=== PATIENT | female | born 1985 | race Caucasian/White ===

== ENCOUNTER 2016-07-27 20:28 | Emergency (ER) | payer OTHER ==
[2016-07-27 20:40] VITALS: BP 114/71; PULSE 80; RESP 20; TEMP 98.5
[2016-07-27] MEDS ORDERED: PENICILLIN VK 500MG STARTER 4 TAB BTL PO STA (21:11)
--- NOTE | 2016-07-27 21:14 | ED ---
ENT HPI - General Chief complaint: Dental/Oral Stated complaint: Oral Infection Time Seen by Provider: 07/27/16 20:54 Source: patient, RN notes reviewed Mode of arrival: ambulatory Limitations: no limitations - History of Present Illness Initial comments: 30-year-old female presented to the ER complaining of left lower jaw pain. She states that she had all of her lower teeth pulled earlier this week and is experiencing increased pain on the left. She states that the right is healing nicely. She states that she pushed on the area earlier today and noticed some pus come out of the suture line. She denies any constitutional symptoms including fever, chills, nausea, vomiting, abdominal pain, diarrhea. She states that she does not have a follow-up scheduled with the oral surgeon at this time. She states that during the surgical procedure they did need to remove some of the bone from the left-hand side as well. She is taking Motrin twice daily and she does have a prescription for [place] pain medication however she does not like how this makes her feel does not take it off to. She states that she is in minimal pain more discomfort with palpation of the area but was concerned that there were some drainage and increased swelling on that side. - Related Data Previous Rx's Medication Instructions Recorded Penicillin V Potassium [Pen Vee K] 500 mg PO TID #30 tab 07/27/16 Allergies Allergy/AdvReac Type Severity Reaction Status Date / Time No Known Allergies Allergy Verified 07/27/16 20:37 Review of Systems ROS Statement: Those systems with pertinent positive or pertinent negative responses have been documented in the HPI. ROS Other: All systems not noted in ROS Statement are negative. Past Medical History Past Medical History: Syncope, Thyroid Disorder Additional Past Medical History / Comment(s): PVC's History of Any Multi-Drug Resistant Organisms: None Reported Past Surgical History: Section Past Psychological History: No Psychological Hx Reported Smoking Status: Current every day smoker Past Alcohol Use History: Rare Past Drug Use History: Marijuana General Exam Limitations: no limitations General appearance: alert, other (Patient appears to be mildly anxious and in minimal discomfort.) Head exam: Present: atraumatic, other (There is visible swelling on the left mandible.) Eye exam: Present: normal appearance, PERRL, EOMI Pupils: Present: normal accommodation ENT exam: Present: mucous membranes moist, other (Patient has upper dentures in place. There are sutures along the lower gumline secondary to surgical removal of the lower teeth. There is a peak appear to be some fibrinous granulation tissue. There is localized area of edema along the left jaw line.) Neck exam: Present: normal inspection, other (No lymphadenopathy.) Respiratory exam: Present: normal lung sounds bilaterally Cardiovascular Exam: Present: regular rate, normal rhythm Neurological exam: Present: alert, oriented X3, CN II-XII intact, normal gait Psychiatric exam: Present: normal affect, normal mood Course Vital Signs 07/27/16 20:37 Temperature 98.5 F Pulse Rate 80 Respiratory 20 Rate Blood Pressure 114/71 O2 Sat by Pulse 98 Oximetry Medical Decision Making - Medical Decision Making 30-year-old female presents to the ER after a surgical removal of the lower teeth. She states that there was some pus that came out of the area today. On exam I do note a localized area of edema and tenderness along the left mandible. This is greater than the right. We will recommend treatment with antibiotic penicillin being the antibiotic of choice. Patient is continue her Motrin at home and take [place] she has as needed for pain. Recommend follow-up with the oral surgeon this week. I'm did give her the option of staying home from work tomorrow. Patient's return to the ER with any worsening symptoms or concerns. Disposition Clinical Impression: Oral infection Disposition: HOME SELF-CARE Condition: Good Instructions: Toothache (ED) Additional Instructions: To return to the ER with any worsening symptoms or concerns. To follow-up with oral surgeon as soon as possible. Prescriptions: Penicillin V Potassium [Pen Vee K] 500 mg PO TID #30 tab Referrals: Roni Hua III, MD [Primary Care Provider] - 1-2 days Time of Disposition: 21:14
== END 2016-07-27 21:20 | disposition home or self-care (01) ==
LOC: EC 20:28
DX: T81.4XXA Infection following a procedure, initial encounter (principal); F17.200 Nicotine dependence, unspecified, uncomplicated; Z98.818 Other dental procedure status
CPT/HCPCS: 99282

== ENCOUNTER 2017-04-11 03:32 | Emergency (ER) | payer BC, OTHER ==
[2017-04-11] MEDS ORDERED: ONDANSETRON 4 MG/2 ML VIAL IVP STA (03:49)
[2017-04-11] MEDS ORDERED: KETOROLAC 30 MG/ML 1 ML VIAL IVP STA (03:49)
[2017-04-11] MEDS ORDERED: SODIUM CHLORIDE 0.9% 500 ML IV STA (03:49)
[2017-04-11] MEDS ORDERED: DIPHENOX-ATROP 2.5-0.025 MG 1 EACH TAB PO STA (03:49)
[2017-04-11] MEDS ORDERED: SODIUM CHLORIDE 0.9% 1,000 ML IV STA (03:49)
--- NOTE | 2017-04-11 03:51 | ED ---
General Adult HPI - General Chief complaint: Nausea/Vomiting/Diarrhea Stated complaint: Flu like symptoms Time Seen by Provider: 04/11/17 03:35 Source: patient, RN notes reviewed Mode of arrival: ambulatory Limitations: no limitations - History of Present Illness Initial comments: This is a 31-year-old female presents emergency Department complaining of nausea vomiting and diarrhea for 8 hours. Patient states she's unable to keep anything down. Patient denies any fever or chills. Patient states her lower back hurts a little. Patient denies any abdominal pain but states she does have abdominal cramping. Patient denies any chest pain difficult breathing or shortness of breath. Patient denies headache patient denies numbness or weakness. Patient denies any dysuria hematuria or urinary frequency. - Related Data Home Medications Medication Instructions Recorded Confirmed LORazepam [Ativan] 0.5 mg PO BID PRN 04/11/17 04/11/17 Allergies Allergy/AdvReac Type Severity Reaction Status Date / Time No Known Allergies Allergy Verified 04/11/17 03:42 Review of Systems ROS Statement: Those systems with pertinent positive or pertinent negative responses have been documented in the HPI. ROS Other: All systems not noted in ROS Statement are negative. Past Medical History Past Medical History: Syncope, Thyroid Disorder Additional Past Medical History / Comment(s): PVC's History of Any Multi-Drug Resistant Organisms: None Reported Past Surgical History: Section Past Psychological History: No Psychological Hx Reported Smoking Status: Current every day smoker Past Alcohol Use History: Rare Past Drug Use History: Marijuana General Exam - General Exam Comments Initial Comments: GENERAL: Patient is well-developed and well-nourished. Patient is nontoxic and well- hydrated and is in mild distress. ENT: Neck is soft and supple. No significant lymphadenopathy is noted. Oropharynx is clear. Dry membranes. Neck has full range of motion without eliciting any pain. EYES: The sclera were anicteric and conjunctiva were pink and moist. Extraocular movements were intact and pupils were equal round and reactive to light. Eyelids were unremarkable. PULMONARY: Unlabored respirations. Good breath sounds bilaterally. No audible rales rhonchi or wheezing was noted. CARDIOVASCULAR: There is a regular rate and rhythm without any murmurs gallops or rubs. ABDOMEN: Soft and nontender with normal bowel sounds. No palpable organomegaly was noted. There is no palpable pulsatile mass. SKIN: Skin is clear with no lesions or rashes and otherwise unremarkable. NEUROLOGIC: Patient is alert and oriented x3. Cranial nerves II through XII are grossly intact. Motor and sensory are also intact. Normal speech, volume and content. Symmetrical smile. MUSCULOSKELETAL: Normal extremities with adequate strength and full range of motion. No lower extremity swelling or edema. No calf tenderness. LYMPHATICS: No significant lymphadenopathy is noted PSYCHIATRIC: Normal psychiatric evaluation. Normal interpersonal interactions appears functionally intact in deals appropriately with others. No signs of depression. No signs of anxiety. Limitations: no limitations Course Vital Signs 04/11/17 03:36 Temperature 97.2 F L Pulse Rate 118 H Respiratory 20 Rate Blood Pressure 122/72 O2 Sat by Pulse 98 Oximetry Medical Decision Making - Medical Decision Making I went back to check on the patient and she was feeling considerably better. She was no longer nauseated but still had some abdominal cramping. Patient was checked out again after about 40 minutes and again she was feeling much better wanted to go home. - Lab Data Result diagrams: 04/11/17 03:18 04/11/17 03:18 Lab Results 04/11/17 04/11/17 04/11/17 Range/Units 03:18 03:18 04:00 WBC 16.9 H (3.8-10.6) k/uL RBC 5.11 (3.80-5.40) m/uL Hgb 15.0 (11.4-16.0) gm/dL Hct 44.0 (34.0-46.0) % MCV 86.2 (80.0-100.0) fL MCH 29.5 (25.0-35.0) pg MCHC 34.2 (31.0-37.0) g/dL RDW 13.0 (11.5-15.5) % Plt Count 274 (150-450) k/uL Neutrophils % 90 % Lymphocytes % 3 % Monocytes % 4 % Eosinophils % 2 % Basophils % 0 % Neutrophils # 15.2 H (1.3-7.7) k/uL Lymphocytes # 0.5 L (1.0-4.8) k/uL Monocytes # 0.7 (0-1.0) k/uL Eosinophils # 0.3 (0-0.7) k/uL Basophils # 0.1 (0-0.2) k/uL Sodium 141 (137-145) mmol/L Potassium 4.4 (3.5-5.1) mmol/L Chloride 108 H (98-107) mmol/L Carbon Dioxide 19 L (22-30) mmol/L Anion Gap 14 mmol/L BUN 12 (7-17) mg/dL Creatinine 0.80 (0.52-1.04) mg/dL Est GFR (MDRD) Af Amer >60 (>60 ml/min/1.73 sqM) Est GFR (MDRD) Non-Af >60 (>60 ml/min/1.73 sqM) Glucose 111 H (74-99) mg/dL Calcium 10.3 H (8.4-10.2) mg/dL Total Bilirubin 1.0 (0.2-1.3) mg/dL AST 22 (14-36) U/L ALT 30 (9-52) U/L Alkaline Phosphatase 71 (38-126) U/L Total Protein 8.0 (6.3-8.2) g/dL Albumin 4.8 (3.5-5.0) g/dL Amylase 42 (30-110) U/L Lipase 57 (23-300) U/L Urine Color Urine Appearance (Clear) Urine pH (5.0-8.0) Ur Specific [place] (1.001-1.035) Urine Protein (Negative) Urine Glucose (UA) (Negative) Urine Ketones (Negative) Urine Blood (Negative) Urine Nitrite (Negative) Urine Bilirubin (Negative) Urine Urobilinogen (<2.0) mg/dL Ur Leukocyte Esterase (Negative) Urine RBC (0-5) /hpf Urine WBC (0-5) /hpf Ur Squamous Epith Cells (0-4) /hpf Urine Bacteria (None) /hpf Urine Mucus (None) /hpf Urine HCG, Qual Not Detected (Not Detectd) 04/11/17 Range/Units 04:00 WBC (3.8-10.6) k/uL RBC (3.80-5.40) m/uL Hgb (11.4-16.0) gm/dL Hct (34.0-46.0) % MCV (80.0-100.0) fL MCH (25.0-35.0) pg MCHC (31.0-37.0) g/dL RDW (11.5-15.5) % Plt Count (150-450) k/uL Neutrophils % % Lymphocytes % % Monocytes % % Eosinophils % % Basophils % % Neutrophils # (1.3-7.7) k/uL Lymphocytes # (1.0-4.8) k/uL Monocytes # (0-1.0) k/uL Eosinophils # (0-0.7) k/uL Basophils # (0-0.2) k/uL Sodium (137-145) mmol/L Potassium (3.5-5.1) mmol/L Chloride (98-107) mmol/L Carbon Dioxide (22-30) mmol/L Anion Gap mmol/L BUN (7-17) mg/dL Creatinine (0.52-1.04) mg/dL Est GFR (MDRD) Af Amer (>60 ml/min/1.73 sqM) Est GFR (MDRD) Non-Af (>60 ml/min/1.73 sqM) Glucose (74-99) mg/dL Calcium (8.4-10.2) mg/dL Total Bilirubin (0.2-1.3) mg/dL AST (14-36) U/L ALT (9-52) U/L Alkaline Phosphatase (38-126) U/L Total Protein (6.3-8.2) g/dL Albumin (3.5-5.0) g/dL Amylase (30-110) U/L Lipase (23-300) U/L Urine Color Dark Yellow Urine Appearance Clear (Clear) Urine pH 8.5 H (5.0-8.0) Ur Specific [place] 1.028 (1.001-1.035) Urine Protein 1+ H (Negative) Urine Glucose (UA) Negative (Negative) Urine Ketones Trace H (Negative) Urine Blood Negative (Negative) Urine Nitrite Negative (Negative) Urine Bilirubin 1+ H (Negative) Urine Urobilinogen 8.0 (<2.0) mg/dL Ur Leukocyte Esterase Trace H (Negative) Urine RBC 7 H (0-5) /hpf Urine WBC 3 (0-5) /hpf Ur Squamous Epith Cells 3 (0-4) /hpf Urine Bacteria Rare H (None) /hpf Urine Mucus Many H (None) /hpf Urine HCG, Qual (Not Detectd) Disposition Clinical Impression: Gastroenteritis Disposition: HOME SELF-CARE Instructions: Gastroenteritis (ED) Referrals: Roni Hua III, MD [Primary Care Provider] - 1-2 days Time of Disposition: 05:18
[2017-04-11 04:14] LABS: Appearance,Urine Clear (Clear); Bacteria,Urine Rare /hpf; Bilirubin,Urine 1+ (Negative); Blood,Urine Negative (Negative); Color,Urine Dark Yellow; Glucose,Urine (UA) Negative (Negative); Ketones,Urine Trace (Negative); Leukocyte Esterase,Urine Trace (Negative); Mucus,Urine Many /hpf; Nitrite,Urine Negative (Negative); PH, Urine 8.5 (5.0-8.0); Protein,Urine 1+ (Negative); RBC,Urine 7 /hpf (0-5); Specific Gravity,Urine 1.028 (1.001-1.035); Squamous Epithelial Cell,Urine 3 /hpf (0-4); WBC,Urine 3 /hpf (0-5)
[2017-04-11 04:16] LABS: ALT 30 U/L (9-52); AST 22 U/L (14-36); Albumin 4.8 g/dL (3.5-5.0); Alkaline Phosphatase 71 U/L (38-126); Amylase 42 U/L (30-110); Anion Gap 14 mmol/L; Blood Urea Nitrogen 12 mg/dL (7-17); Calcium 10.3 mg/dL (8.4-10.2); Carbon Dioxide 19 mmol/L (22-30); Chloride 108 mmol/L (98-107); Glucose 111 mg/dL (74-99); Lipase 57 U/L (23-300); Potassium 4.4 mmol/L (3.5-5.1); Sodium 141 mmol/L (137-145)
[2017-04-11 04:18] LABS: Basophils # (A) 0.1 k/uL (0-0.2); Basophils % (A) 0 %; Eosinophils # (A) 0.3 k/uL (0-0.7); Eosinophils % (A) 2 %; Lymphocytes # (A) 0.5 k/uL (1.0-4.8); Lymphocytes % (A) 3 %; MCH 29.5 pg (25.0-35.0); MCHC 34.2 g/dL (31.0-37.0); MCV 86.2 fL (80.0-100.0); Mean Platelet Volume 7.6; Monocytes # (A) 0.7 k/uL (0-1.0); Monocytes % (A) 4 %; Neutrophils # (A) 15.2 k/uL (1.3-7.7); Neutrophils % (A) 90 %; Platelet Count 274 k/uL (150-450); RBC 5.11 m/uL (3.80-5.40); WBC 16.9 k/uL (3.8-10.6)
[2017-04-11] MEDS ORDERED: ONDANSETRON 4 MG ODT STARTER PACK 2 TAB BTL PO STA (05:19)
[2017-04-11 05:39] VITALS: BP 101/59; PULSE 79; RESP 18; TEMP 97.6
== END 2017-04-11 05:40 | disposition home or self-care (01) ==
LOC: EC 03:32
DX: K52.9 Noninfective gastroenteritis and colitis, unspecified (principal); F17.200 Nicotine dependence, unspecified, uncomplicated
CPT/HCPCS: 36415; 80053; 82150; 83690; 85025; 81001; 81025; 99284; 96374; 96375; 96361 ×2; J2405; J1885; S0119

== ENCOUNTER → 2017-06-29 | Outpatient (CLI) | payer BC, OTHER ==
--- NOTE | 2017-06-29 09:18 | US ---
EXAMINATION TYPE: US thyroid st tissue head/neck DATE OF EXAM: 06/29/2017 COMPARISON: 07/13/2014 CLINICAL HISTORY: E04.1 Non toxic single thyroid nodule. Follow up thyroid nodule GLAND SIZE: Right Lobe: 4.1 x 1.2 x 1.3 cm Overall Parenchyma: homogenous Left Lobe: 4.2 x 0.9 x 1.2 cm Overall Parenchyma: homogeneous Isthmus Thickness: 0.2 cm NODULES RIGHT: # of nodules measured on right: 1 1. 0.6 X 0.4 x 0.5 cm isoechoic mixed nodule at the mid pole with well-defined margins. This nodule is wider than tall and shows no intranodular vascularity. Prior size: 0.6 x 0.4 x 0.3 cm LEFT: # of nodules measured on left: 0 ISTHMUS: # of nodules measured in the isthmus: 0 Bilateral neck scanned, no evidence of lymphadenopathy. IMPRESSION: Stable single subcentimeter right-sided thyroid nodule
== END | disposition home or self-care (01) ==
LOC: RADUSMAIN 08:31
PROVIDERS: ATTEND Family Medicine
DX: E04.1 Nontoxic single thyroid nodule (principal); Z88.8 Allergy status to other drugs, medicaments and biological substances
CPT/HCPCS: 76536

== ENCOUNTER 2018-08-31 00:15 | Inpatient (IN) | payer BC, OTHER ==
[2018-08-31] MEDS ORDERED: TERBUTALINE 1 MG/ML VIAL SQ PRN (01:15)
[2018-08-31] MEDS ORDERED: METHYLERGONOVINE 0.2 MG/ML 1 ML AMP IM PRN (01:15)
[2018-08-31] MEDS ORDERED: LIDOCAINE 0.5% (PF) 5 MG/ML (50 ML SDV) SQ PRN (01:15)
[2018-08-31] MEDS ORDERED: CARBOPROST TROMETHAMINE 250 MCG/ML 1 ML AMP IM PRN (01:15)
[2018-08-31] MEDS ORDERED: OXYTOCIN 10 UNIT/ML 1 ML VIAL IM PRN (01:15)
[2018-08-31] MEDS ORDERED: AMPICILLIN 2,000 MG in SODIUM CHLORIDE 0.9% 100 ML IVPB STA (01:15)
[2018-08-31 01:41] LABS: Basophils % (A) 0 %; Eosinophils # (A) 0.2 k/uL (0-0.7); Eosinophils % (A) 2 %; HCT 35.1 % (34.0-46.0); HGB 11.7 gm/dL (11.4-16.0); Lymphocytes % (A) 16 %; MCH 28.7 pg (25.0-35.0); MCHC 33.5 g/dL (31.0-37.0); MCV 85.8 fL (80.0-100.0); Mean Platelet Volume 8.8; Monocytes # (A) 0.8 k/uL (0-1.0); Monocytes % (A) 7 %; Neutrophils # (A) 9.5 k/uL (1.3-7.7); Neutrophils % (A) 73 %; Platelet Count 255 k/uL (150-450); RBC 4.09 m/uL (3.80-5.40); RDW 14.6 % (11.5-15.5); WBC 12.9 k/uL (3.8-10.6)
[2018-08-31] MEDS: LACTATED RINGERS 1,000 ML IV SCH ×2 (01:42→05:24)
[2018-08-31] MEDS: OXYTOCIN 30 UNITS/500 ML NS 30 UNIT in SALINE 1 500ML.BAG IV SCH (02:15)
--- NOTE | 2018-08-31 02:33 | P.HPOB ---
History of Present Illness H&P Date: 08/31/18 Chief Complaint: SROM 33-year-old presents at 39 weeks with spontaneous rupture of membranes at 2330. Her cervix is 2 cm down, 60% effaced, and -3 station. She is jocelyn irregularly. heart tones 130s with moderate variability and accelerations, category 1 tracing. Review of Systems All systems: negative Constitutional: Denies chills, Denies fever Eyes: denies blurred vision, denies pain Ears, nose, mouth and throat: Denies headache, Denies sore throat Cardiovascular: Denies chest pain, Denies shortness of breath Respiratory: Denies cough Gastrointestinal: Denies abdominal pain, Denies diarrhea, Denies nausea, Denies vomiting Genitourinary: Denies dysuria, Denies hematuria Musculoskeletal: Denies myalgias Integumentary: Denies pruritus, Denies rash Neurological: Denies numbness, Denies weakness Psychiatric: Denies anxiety, Denies depression Endocrine: Denies fatigue, Denies weight change Past Medical History Past Medical History: Syncope, Thyroid Disorder Additional Past Medical History / Comment(s): PVC's. Obstetrics history: First was a section for arrest to descend macrosomia. This is her second and she's had care with Dr. Lopez since the first trimester. Blood type is O+, antibodies negative, rubella immune, hepatitis B negative, HIV nonreactive, GBS positive. History of Any Multi-Drug Resistant Organisms: None Reported Past Surgical History: Section Past Psychological History: No Psychological Hx Reported Smoking Status: Current every day smoker Past Alcohol Use History: Rare Past Drug Use History: Marijuana Medications and Allergies Home Medications Medication Instructions Recorded Confirmed Type LORazepam [Ativan] 0.5 mg PO BID PRN 04/11/17 04/11/17 History Allergies Allergy/AdvReac Type Severity Reaction Status Date / Time No Known Allergies Allergy Verified 04/11/17 03:42 Exam Osteopathic Statement: *. No significant issues noted on an osteopathic structural exam other than those noted in the History and Physical/Consult. Intake and Output 08/30/18 08/30/18 08/31/18 14:59 22:59 06:59 Other: Weight 65.771 kg Heart: Regular rate and rhythm Lungs: Clear to auscultation bilaterally Abdomen: Soft, nontender Extremities: Negative Homans sign Results Result Diagrams: 08/31/18 01:25 Abnormal Lab Results - Last 24 Hours (Table) 08/31/18 Range/Units 01:25 WBC 12.9 H (3.8-10.6) k/uL Neutrophils # 9.5 H (1.3-7.7) k/uL Assessment and Plan (1) Spontaneous rupture of membranes Current Visit: Yes Status: Acute Code(s): VJS1182 - SNOMED Code(s): 528795831 (2) Previous section Current Visit: Yes Status: Acute Code(s): Z98.891 - HISTORY OF UTERINE SCAR FROM PREVIOUS SURGERY SNOMED Code(s): 212629486 Plan: 1. Admit to family place 2. Monitor closely 3. Pitocin augmentation if necessary 4. Ampicillin for GBS prophylaxis 5. Anticipate normal vaginal delivery
[2018-08-31] MEDS ORDERED: BUTORPHANOL 1 MG/ML 1 ML VIAL IV PRN (03:10)
[2018-08-31] MEDS ORDERED: ROPIVACAINE 5MG/ML 20ML VIAL ONE (05:05)
[2018-08-31] MEDS ORDERED: fentaNYL (PF) 50 MCG/ML 5 ML AMP ONE (05:05)
[2018-08-31] MEDS ORDERED: SODIUM CHLORIDE 0.9% 100 ML BAG ONE (05:05)
[2018-08-31] MEDS: AMPICILLIN 1,000 MG in SODIUM CHLORIDE 0.9% 50 ML IVPB SCH ×2 (05:51→09:54)
[2018-08-31] MEDS ORDERED: ROPIVACAINE 100 MG, fentaNYL (PF) 200 MCG in SODIUM CHLORIDE 0.9% 76 ML EPIDURAL ONE (06:34)
[2018-08-31 06:44] VITALS: BMI 26.5
[2018-08-31] MEDS ORDERED: WITCH HAZEL 1 EACH MED..PAD TOPICAL PRN (14:37)
[2018-08-31] MEDS ORDERED: ZOLPIDEM 5 MG TAB PO PRN (14:37)
[2018-08-31] MEDS ORDERED: diphenhydrAMINE 50 MG/ML 1 ML VIAL IVP PRN ×2 (14:37)
[2018-08-31] MEDS ORDERED: ACETAMINOPHEN TAB 325 MG TAB PO PRN (14:37)
[2018-08-31] MEDS ORDERED: SIMETHICONE 80 MG CHEWABLE PO PRN (14:37)
[2018-08-31] MEDS ORDERED: HYDROCORTISONE 2.5% RECTAL CREAM 30 GM TUBE RECTAL PRN (14:37)
[2018-08-31] MEDS ORDERED: LANOLIN CREAM 5 GM TUBE TOPICAL PRN (14:37)
[2018-08-31] MEDS ORDERED: diphenhydrAMINE 25 MG CAP PO PRN (14:37)
[2018-08-31] MEDS ORDERED: diphenhydrAMINE 50 MG CAP PO PRN (14:37)
[2018-08-31] MEDS ORDERED: BENZOCAINE/MENTHOL SPRAY 1 GM/SPRAY AEROSOL TOPICAL PRN (14:37)
[2018-08-31] MEDS ORDERED: OXYTOCIN 20 UNITS/1000 ML NS 1,000 ML IV SCH (14:45)
[2018-08-31] MEDS: IBUPROFEN 600 MG TAB PO PRN ×2 (14:47→19:44)
[2018-08-31 15:20] VITALS: RESP 16
--- NOTE | 2018-08-31 17:38 | P.PROBDLV ---
Vaginal Delivery Note - . Vaginal Delivery Note: The patient progressed to complete dilation after oxytocin augmentation of labor. She did receive epidural anesthesia. She had internal monitoring the entire progress of labor. Once reaching complete dilation, she began pushing. Infant's head came to a crown. With one further push, the 's head delivered across the perineum followed by the anterior shoulder. Nose and mouth were bulb suctioned. With one further push, the remainder the infant easily delivered and was placed on mother's abdomen. Cord was clamped and cut and was taken to warmer for evaluation. A viable female was noted with scores of 8 at 1 minute and 9 at 5 minutes and infant weight of 6 pounds 15.6 ounces. Placenta delivered shortly thereafter, intact, with a two- vessel cord. Uterus contracted well after oxytocin was given and uterine massage was carried out. Inspection of the perineum revealed a left periurethral laceration and a small first-degree perineal laceration. These areas were anesthetized with 1% lidocaine. The left periurethral laceration was sutured with 3-0 Vicryl suture in a running locked fashion. The first-degree perineal laceration was sutured with 2-0 Vicryl suture in a running locked fashion. Estimated blood loss is approximately 200 mL's. Both mother and infant are in stable condition.
[2018-09-01] MEDS: SENNOSIDES-DOCUSATE SODIUM 1 EACH TAB PO SCH ×2 (01:58→07:50)
[2018-09-01] MEDS: IBUPROFEN 600 MG TAB PO PRN (06:22)
[2018-09-01 08:36] LABS: Basophils % (A) 0 %; Eosinophils # (A) 0.2 k/uL (0-0.7); Eosinophils % (A) 1 %; HCT 29.2 % (34.0-46.0); Lymphocytes # (A) 1.5 k/uL (1.0-4.8); Lymphocytes % (A) 8 %; MCH 29.2 pg (25.0-35.0); MCHC 33.2 g/dL (31.0-37.0); MCV 87.7 fL (80.0-100.0); Mean Platelet Volume 9.3; Monocytes % (A) 5 %; Neutrophils # (A) 16.4 k/uL (1.3-7.7); Neutrophils % (A) 85 %; Platelet Count 200 k/uL (150-450); RBC 3.33 m/uL (3.80-5.40); RDW 14.8 % (11.5-15.5); WBC 19.4 k/uL (3.8-10.6)
[2018-09-01 08:38] LABS: HGB 9.7 gm/dL (11.4-16.0)
--- NOTE | 2018-09-01 08:48 | P.DS ---
Providers Date of admission: 08/31/18 00:45 Expected date of discharge: 09/01/18 Attending physician: Shivam Lopez Primary care physician: Shivam Lopez [facility] Course: This is a 33-year-old female 2 para 1 at 39 weeks who presented with spontaneous rupture of membranes. She underwent oxytocin augmentation of labor and delivered a vaginal after section of a viable female with scores of 8 at 1 minute and 9 at 5 minutes and infant weight is 6 pounds 15.6 ounces. Marginal cord insertion and two-vessel cord were also noted. Her course has been uncomplicated. Lochia is been decreasing. Pain is fairly well controlled with ibuprofen. She is breast- feeding. Vital signs are stable. Abdomen is soft with fundus firm and nontender. Extremities show negative Homans. Impression is status post vaginal after day #1. Plan is to discharge home today. Routine instructions are given. She is advised to follow up in the office with Dr. Lopez in 6 weeks. She is advised to call the office if she has any further questions or concerns prior to her appointment time. She will be given a prescription for ibuprofen and a breast pump prior to discharge. Procedures: Oxytocin augmentation of labor Vaginal after section on 08/31/2018 Patient Condition at Discharge: Stable Plan - Discharge Summary New Discharge Prescriptions: New Ibuprofen [Motrin] 600 mg PO Q6HR PRN #60 tab PRN Reason: Mild Pain Or Fever >= 100.5 No Action LORazepam [Ativan] 0.5 mg PO BID PRN PRN Reason: Anxiety Discharge Medication List LORazepam [Ativan] 0.5 mg PO BID PRN 04/11/17 [History] Ibuprofen [Motrin] 600 mg PO Q6HR PRN #60 tab 09/01/18 [Rx] Follow up Appointment(s)/Referral(s): Shivam Lopez DO [Primary Care Provider] - 6 Weeks Activity/Diet/Wound Care/Special Instructions: Instructions 1. Do not begin any exercise program for 3 weeks. 2. Do not resume sexual relations for 3 weeks or longer if uncomfortable. 3. You may take tub baths or showers at any time. 4. You may use tampons if desired after 3 weeks. 5. Keep the area of episiotomy (stitches) clean and dry. 6. If you are not nursing, wear a good fitting, supportive bra during the day and limit fluid intake for at least 1 week to prevent breast engorgement. 7. Call the office, [phone], within the next week to make appointment for your 6 week checkup if it has not already been made. 8. Report any of the following occurrences to the doctor promptly: a. Heavy, excessive bleeding b. Chills, fever c. Burning or frequency of urination d. Pain or redness and breasts if nursing e. Increasing pain or swelling in episiotomy (stitches). In addition to the above instructions, the following additional should be followed: 1. No heavy lifting or straining (exercising) until after 6 week checkup. 2. Keep abdominal incision clean and dry: You may wear a dressing if more comfortable. 3. Make office appointment for 10 days after going home or as instructed by her doctor. Discharge Disposition: HOME SELF-CARE
[2018-09-01 09:04] VITALS: BP 112/69; PULSE 62; TEMP 97.8
[2018-09-01] MEDS: OXYTOCIN 30 UNITS/500 ML NS 30 UNIT in SALINE 1 500ML.BAG IV SCH (09:06)
[2018-09-01] MEDS: AMPICILLIN 1,000 MG in SODIUM CHLORIDE 0.9% 50 ML IVPB SCH (10:07)
== END 2018-09-01 15:20 | disposition home or self-care (01) | DRG 807 ==
LOC: FBPOP 00:15 → 4FBP 00:45
PROVIDERS: ADMIT Obstetrics & Gynecology; ATTEND Obstetrics & Gynecology
PROC: 10E0XZZ Delivery of Products of Conception, External Approach (ICD-10-PCS; principal; 2018-08-31)
PROC: 0HQ9XZZ Repair Perineum Skin, External Approach (ICD-10-PCS; 2018-08-31)
PROC: 0UQMXZZ Repair Vulva, External Approach (ICD-10-PCS; 2018-08-31)
PROC: 4A1H74Z Monitoring of Products of Conception, Cardiac Electrical Activity, Via Natural or Artificial Opening (ICD-10-PCS; 2018-08-31)
PROC: 4A1H7HZ Monitoring of Products of Conception, Cardiac Sound, Via Natural or Artificial Opening (ICD-10-PCS; 2018-08-31)
PROC: 4A1H7FZ Monitoring of Products of Conception, Cardiac Rhythm, Via Natural or Artificial Opening (ICD-10-PCS; 2018-08-31)
PROC: 4A1H7CZ Monitoring of Products of Conception, Cardiac Rate, Via Natural or Artificial Opening (ICD-10-PCS; 2018-08-31)
PROC: 10H073Z Insertion of Monitoring Electrode into Products of Conception, Via Natural or Artificial Opening (ICD-10-PCS; 2018-08-31)
PROC: 00HU33Z Insertion of Infusion Device into Spinal Canal, Percutaneous Approach (ICD-10-PCS; 2018-08-31)
PROC: 3E0R3BZ Introduction of Anesthetic Agent into Spinal Canal, Percutaneous Approach (ICD-10-PCS; 2018-08-31)
DX: O34.211 Maternal care for low transverse scar from previous cesarean delivery (principal); Z37.0 Single live birth; N85.8 Other specified noninflammatory disorders of uterus; O43.193 Other malformation of placenta, third trimester; O70.0 First degree perineal laceration during delivery; O71.82 Other specified trauma to perineum and vulva; O99.824 Streptococcus B carrier state complicating childbirth; O99.284 Endocrine, nutritional and metabolic diseases complicating childbirth; E07.9 Disorder of thyroid, unspecified; Z3A.39 39 weeks gestation of pregnancy; O99.334 Smoking (tobacco) complicating childbirth; F17.200 Nicotine dependence, unspecified, uncomplicated; Z79.899 Other long term (current) drug therapy
CPT/HCPCS: 59025; 84112; 85025; 86850; 86900; 86901; 88307; 99213

== ENCOUNTER → 2019-03-08 | Outpatient (CLI) | payer OTHER ==
--- NOTE | 2019-03-08 15:19 | US ---
EXAMINATION TYPE: US thyroid st tissue head/neck DATE OF EXAM: 03/08/2019 COMPARISON: US 06/29/2017 CLINICAL HISTORY: E04.1 nontoxic single thyroid nodule. F/U nodule GLAND SIZE: Right Lobe: 4.1 x 1.3 x 1.5 cm Overall Parenchyma: homogenous Left Lobe: 3.8 x 1.1 x 1.1 cm Overall Parenchyma: homogeneous Isthmus Thickness: 0.2 cm NODULES RIGHT: # of nodules measured on left: 1 1. 0.4 X 0.3 x 0.4 cm isoechoic mixed nodule at the mid pole with poorly defined margins; This nod ule is wider than tall and shows intranodular vascularity. Prior size: 0.6 x 0.4 x 0.5 cm Bilateral neck scanned, no evidence of lymphadenopathy. Similar nodule right lobe of thyroid. IMPRESSION: No interval growth of the subcentimeter solid solitary right thyroid nodule.
== END | disposition home or self-care (01) ==
LOC: RADUSWWP 14:44
PROVIDERS: ATTEND Family Medicine
DX: E04.1 Nontoxic single thyroid nodule (principal)
CPT/HCPCS: 76536

== ENCOUNTER → 2020-12-07 | Outpatient (CLI) | payer OTHER ==
[2020-12-07 13:11] LABS: HCG,Qualitative Serum Detected
[2020-12-07 20:09] LABS: Basophils # (A) 0.09 X 10*3/uL (0.00-0.10); Basophils % (A) 0.8 %; Eosinophils # (A) 0.39 X 10*3/uL (0.04-0.35); Eosinophils % (A) 3.6 %; HGB 13.8 g/dL (12.0-15.0); Lymphocytes # (A) 2.27 X 10*3/uL (0.90-5.00); Lymphocytes % (A) 20.7 %; MCH 30.8 pg (27.0-32.0); MCHC 33.7 g/dL (32.0-37.0); MCV 91.5 fL (80.0-97.0); Monocytes # (A) 0.93 X 10*3/uL (0.20-1.00); Monocytes % (A) 8.5 %; Neutrophils # (A) 7.25 X 10*3/uL (1.80-7.70); Neutrophils % (A) 65.9 %; Platelet Count 350 X 10*3/uL (140-440); RBC 4.48 X 10*6/uL (4.10-5.20); RDW 12.5 % (11.5-14.5); WBC 10.98 X 10*3/uL (4.50-10.00)
[2020-12-08 01:53] LABS: ALT 20 U/L (8-44); AST 20 U/L (13-35); Albumin/Globulin Ratio 2.18 (1.60-3.17); Alkaline Phosphatase 78 U/L (41-126); Calcium 9.5 mg/dL (8.7-10.3); Carbon Dioxide 25.9 mmol/L (21.6-31.8); Chloride 106 mmol/L (96-109); Chol/HDL Ratio 4.44; Cholesterol 200 mg/dL (0-200); Globulin 2.2 g/dL (1.6-3.3); Glucose 80 mg/dL (70-110); LDL Cholesterol,Calculated 104.8 mg/dL (0.0-131.0); Potassium 4.4 mmol/L (3.5-5.5); Sodium 138 mmol/L (135-145); Total Bilirubin 0.6 mg/dL (0.3-1.2)
[2020-12-08 21:24] LABS: Gliadin AB IgA, Deaminated NEGATIVE (NEGATIVE); Gliadin AB IgA, Unit 1.5 U/mL; Gliadin AB IgG, Deaminated NEGATIVE (NEGATIVE)
== END | disposition home or self-care (01) ==
LOC: LABWHC1 11:23
PROVIDERS: ATTEND Family Medicine
DX: Z00.01 Encounter for general adult medical examination with abnormal findings (principal)
CPT/HCPCS: 36415; 80053; 80061; 83516; 84439; 84443; 84703; 85025

== ENCOUNTER 2020-12-11 17:28 | Emergency (ER) | payer OTHER ==
[2020-12-11 18:18] VITALS: BP 108/74; PULSE 107; RESP 18; TEMP 98.2
[2020-12-11] MEDS ORDERED: METOCLOPRAMIDE 5 MG/ML 2 ML VIAL IVP STA (19:01)
[2020-12-11] MEDS ORDERED: SODIUM CHLORIDE 0.9% 1,000 ML IV STA (19:01)
[2020-12-11] MEDS ORDERED: SODIUM CHLORIDE 0.9% 500 ML 500 ML IV STA (19:01)
[2020-12-11 19:25] LABS: Basophils # (A) 0.1 k/uL (0-0.2); Basophils % (A) 1 %; Eosinophils # (A) 0.4 k/uL (0-0.7); Eosinophils % (A) 4 %; HCT 39.4 % (34.0-46.0); HGB 13.9 gm/dL (11.4-16.0); Lymphocytes # (A) 2.2 k/uL (1.0-4.8); Lymphocytes % (A) 17 %; MCH 31.4 pg (25.0-35.0); MCHC 35.3 g/dL (31.0-37.0); MCV 88.8 fL (80.0-100.0); Mean Platelet Volume 7.8; Monocytes # (A) 0.6 k/uL (0-1.0); Monocytes % (A) 5 %; Neutrophils # (A) 9.1 k/uL (1.3-7.7); Neutrophils % (A) 72 %; Platelet Count 340 k/uL (150-450); RBC 4.44 m/uL (3.80-5.40); RDW 12.5 % (11.5-15.5); WBC 12.7 k/uL (3.8-10.6)
--- NOTE | 2020-12-11 19:25 | ED ---
Abdominal Pain HPI - General Chief Complaint: Abdominal Pain Stated Complaint: abd pain Time Seen by Provider: 12/11/20 18:38 Source: patient, RN notes reviewed Mode of arrival: ambulatory Limitations: no limitations - History of Present Illness Initial Comments: This a 35-year-old female presents emergency Department chief complaint abdominal pain, upper and lower. She states she was involved she is . Patient states she went to her PCP that she wasn't feeling well and found out she was . Patient states that she has no vaginal bleeding or vaginal discharge but states that she's been quite nausea, vomiting, fatigue. She does have chronic diarrhea and they aren't sure why she has this this has been ongoing for over 2 years. She's does state when she tries states symptoms worsen. - Related Data Home Medications Medication Instructions Recorded Confirmed Venlafaxine HCl ER [Effexor Xr] 75 mg PO DAILY 12/11/20 12/11/20 Allergies Allergy/AdvReac Type Severity Reaction Status Date / Time No Known Allergies Allergy Verified 12/11/20 20:10 Review of Systems ROS Statement: Those systems with pertinent positive or pertinent negative responses have been documented in the HPI. ROS Other: All systems not noted in ROS Statement are negative. Past Medical History Past Medical History: Syncope, Thyroid Disorder Additional Past Medical History / Comment(s): PVC's. Obstetrics history: First was a section for arrest to descend macrosomia. This is her second and she's had care with Dr. Lopez since the first trimester. Blood type is O+, antibodies negative, rubella immune, hepatitis B negative, HIV nonreactive, GBS positive. History of Any Multi-Drug Resistant Organisms: None Reported Past Surgical History: Section Past Anesthesia/Blood Transfusion Reactions: No Reported Reaction Past Psychological History: No Psychological Hx Reported Smoking Status: Current every day smoker Past Alcohol Use History: Rare Past Drug Use History: Marijuana - Past Family History Father Family Medical History: Hypertension General Exam Limitations: no limitations General appearance: alert, in no apparent distress Head exam: Present: atraumatic, normocephalic, normal inspection Eye exam: Present: normal appearance, PERRL, EOMI. Absent: scleral icterus, conjunctival injection, periorbital swelling ENT exam: Present: normal exam, normal oropharynx, mucous membranes moist Neck exam: Present: normal inspection, full ROM. Absent: tenderness, meningismus, lymphadenopathy Respiratory exam: Present: normal lung sounds bilaterally. Absent: respiratory distress, wheezes, rales, rhonchi, stridor Cardiovascular Exam: Present: regular rate, normal rhythm, normal heart sounds. Absent: systolic murmur, diastolic murmur, rubs, gallop, clicks GI/Abdominal exam: Present: soft, tenderness (Suprapubic and right upper quadrant), normal bowel sounds. Absent: distended, guarding, rebound, rigid Back exam: Absent: CVA tenderness (R), CVA tenderness (L) Neurological exam: Present: alert Skin exam: Present: warm, dry, intact, normal color. Absent: rash Course Vital Signs 12/11/20 18:14 Temperature 98.2 F Pulse Rate 107 H Respiratory 18 Rate Blood Pressure 108/74 O2 Sat by Pulse 99 Oximetry Medical Decision Making - Medical Decision Making Patient stated that she had a leave prior results. Initial results they do have are unremarkable. She is controlled discharged return parameters were discussed. - Lab Data Result diagrams: 12/11/20 19:08 12/11/20 19:08 Lab Results 12/11/20 12/11/20 12/11/20 Range/Units 19:08 19:08 19:08 WBC 12.7 H (3.8-10.6) k/uL RBC 4.44 (3.80-5.40) m/uL Hgb 13.9 (11.4-16.0) gm/dL Hct 39.4 (34.0-46.0) % MCV 88.8 (80.0-100.0) fL MCH 31.4 (25.0-35.0) pg MCHC 35.3 (31.0-37.0) g/dL RDW 12.5 (11.5-15.5) % Plt Count 340 (150-450) k/uL MPV 7.8 Neutrophils % 72 % Lymphocytes % 17 % Monocytes % 5 % Eosinophils % 4 % Basophils % 1 % Neutrophils # 9.1 H (1.3-7.7) k/uL Lymphocytes # 2.2 (1.0-4.8) k/uL Monocytes # 0.6 (0-1.0) k/uL Eosinophils # 0.4 (0-0.7) k/uL Basophils # 0.1 (0-0.2) k/uL Sodium 135 L (137-145) mmol/L Potassium 4.1 (3.5-5.1) mmol/L Chloride 105 (98-107) mmol/L Carbon Dioxide 24 (22-30) mmol/L Anion Gap 6 mmol/L BUN 5 L (7-17) mg/dL Creatinine 0.53 (0.52-1.04) mg/dL Est GFR (CKD-EPI)AfAm >90 (>60 ml/min/1.73 sqM) Est GFR (CKD-EPI)NonAf >90 (>60 ml/min/1.73 sqM) Glucose 95 (74-99) mg/dL Plasma Lactic Acid Oscar (0.7-2.0) mmol/L Calcium 9.5 (8.4-10.2) mg/dL Total Bilirubin 0.4 (0.2-1.3) mg/dL AST 21 (14-36) U/L ALT 16 (4-34) U/L Alkaline Phosphatase 72 (38-126) U/L Total Protein 6.7 (6.3-8.2) g/dL Albumin 4.1 (3.5-5.0) g/dL Amylase 42 (30-110) U/L Lipase 58 (23-300) U/L Urine Color Light Yellow Urine Appearance Clear (Clear) Urine pH 6.0 (5.0-8.0) Ur Specific [place] 1.004 (1.001-1.035) Urine Protein Negative (Negative) Urine Glucose (UA) Negative (Negative) Urine Ketones Negative (Negative) Urine Blood Negative (Negative) Urine Nitrite Negative (Negative) Urine Bilirubin Negative (Negative) Urine Urobilinogen <2.0 (<2.0) mg/dL Ur Leukocyte Esterase Negative (Negative) 12/11/20 Range/Units 19:08 WBC (3.8-10.6) k/uL RBC (3.80-5.40) m/uL Hgb (11.4-16.0) gm/dL Hct (34.0-46.0) % MCV (80.0-100.0) fL MCH (25.0-35.0) pg MCHC (31.0-37.0) g/dL RDW (11.5-15.5) % Plt Count (150-450) k/uL MPV Neutrophils % % Lymphocytes % % Monocytes % % Eosinophils % % Basophils % % Neutrophils # (1.3-7.7) k/uL Lymphocytes # (1.0-4.8) k/uL Monocytes # (0-1.0) k/uL Eosinophils # (0-0.7) k/uL Basophils # (0-0.2) k/uL Sodium (137-145) mmol/L Potassium (3.5-5.1) mmol/L Chloride (98-107) mmol/L Carbon Dioxide (22-30) mmol/L Anion Gap mmol/L BUN (7-17) mg/dL Creatinine (0.52-1.04) mg/dL Est GFR (CKD-EPI)AfAm (>60 ml/min/1.73 sqM) Est GFR (CKD-EPI)NonAf (>60 ml/min/1.73 sqM) Glucose (74-99) mg/dL Plasma Lactic Acid Oscar 0.8 (0.7-2.0) mmol/L Calcium (8.4-10.2) mg/dL Total Bilirubin (0.2-1.3) mg/dL AST (14-36) U/L ALT (4-34) U/L Alkaline Phosphatase (38-126) U/L Total Protein (6.3-8.2) g/dL Albumin (3.5-5.0) g/dL Amylase (30-110) U/L Lipase (23-300) U/L Urine Color Urine Appearance (Clear) Urine pH (5.0-8.0) Ur Specific [place] (1.001-1.035) Urine Protein (Negative) Urine Glucose (UA) (Negative) Urine Ketones (Negative) Urine Blood (Negative) Urine Nitrite (Negative) Urine Bilirubin (Negative) Urine Urobilinogen (<2.0) mg/dL Ur Leukocyte Esterase (Negative) Disposition Clinical Impression: Abdominal pain, Disposition: HOME SELF-CARE Condition: Stable Instructions (If sedation given, give patient instructions): Abdominal Pain in (ED) Additional Instructions: Please return to the Emergency Department if symptoms worsen or any other concerns. Is patient prescribed a controlled substance at d/c from ED?: No Referrals: Roni Hua III, MD [Primary Care Provider] - 1-2 days Time of Disposition: 20:45
[2020-12-11 19:28] LABS: Appearance,Urine Clear (Clear); Bilirubin,Urine Negative (Negative); Blood,Urine Negative (Negative); Color,Urine Light Yellow; Glucose,Urine (UA) Negative (Negative); Ketones,Urine Negative (Negative); Leukocyte Esterase,Urine Negative (Negative); Nitrite,Urine Negative (Negative); Protein,Urine Negative (Negative); Specific Gravity,Urine 1.004 (1.001-1.035); Urobilinogen,Urine <2.0 mg/dL (<2.0)
[2020-12-11 19:34] LABS: ALT 16 U/L (4-34); AST 21 U/L (14-36); African American GFR (CKD) >90 (>60 ml/min/1.73 sqM); Albumin 4.1 g/dL (3.5-5.0); Alkaline Phosphatase 72 U/L (38-126); Amylase 42 U/L (30-110); Anion Gap 6 mmol/L; Blood Urea Nitrogen 5 mg/dL (7-17); Calcium 9.5 mg/dL (8.4-10.2); Carbon Dioxide 24 mmol/L (22-30); Chloride 105 mmol/L (98-107); Glucose 95 mg/dL (74-99); Lipase 58 U/L (23-300); Non-African American GFR(CKD) >90 (>60 ml/min/1.73 sqM); Potassium 4.1 mmol/L (3.5-5.1); Sodium 135 mmol/L (137-145); Total Bilirubin 0.4 mg/dL (0.2-1.3); Total Protein 6.7 g/dL (6.3-8.2)
--- NOTE | 2020-12-11 20:42 | US ---
EXAMINATION TYPE: US gallbladder DATE OF EXAM: 12/11/2020 COMPARISON: EXAMINATION TYPE: US gallbladder DATE OF EXAM: 12/11/2020 COMPARISON: US & CT CLINICAL HISTORY: pain. Pt states epigastric pain EXAM MEASUREMENTS: Liver Length: 16.5 cm Gallbladder Wall: 0.2 cm CBD: 0.5 cm Right Kidney: 10.4 x 4.1 x 4.3 cm Pancreas: wnl Liver: wnl Gallbladder: Lumen clear, slightly contracted however pt states she is not NPO Evidence for sonographic Crouch's sign: No CBD: wnl Right Kidney: wnl IMPRESSION: No sonographic evidence for acute abnormality or cholelithiasis.
--- NOTE | 2020-12-11 20:48 | US ---
EXAMINATION TYPE: Transabdominal DATE OF EXAM: 12/11/2020 7:39 PM COMPARISON: NONE CLINICAL HISTORY: pain. Nausea and pain EXAM PERFORMED: Transabdominal (TA) EXAM MEASUREMENTS: GESTATIONAL AGE / DATING Physician Established: Not yet established Dates by LMP: (7 weeks/0 days) EDC: 07/30/2021 Dates by First Scan: No previous this is first scan Dates by Current Scan for: (6 weeks/1 days) EDC: 08/05/2021 MATERNAL ANATOMY Uterus: 10.1 x 4.1 x 6.0 cm Right Ovary: 2.5 x 1.7 x 1.6 cm Left Ovary: 2.8 x 2.9 x 2.0 cm Post CDS / Adnexa: wnl Presence of free fluid: No Presence of corpus luteal cyst: Left OVary= 1.7 x 1.5 x 2.1 cm Presence of subchorionic bleed: No GESTATION / SURVEY CRL: 0.4 cm (6 weeks/1 days) MSD: wnl Yolk Sac (normal less than 6mm): 3mm Heart Rate: 116 bpm Rhythm: Normal IUP: Viable IUP Beta HcG (if available): Not available at this time IMPRESSION: Single live intrauterine with estimated gestational age of 6 weeks and 1 day. No significant acute abnormality seen.
== END 2020-12-11 20:47 | disposition home or self-care (01) ==
LOC: EC 17:28
DX: O26.891 Other specified pregnancy related conditions, first trimester (principal); O21.9 Vomiting of pregnancy, unspecified; O99.891 Other specified diseases and conditions complicating pregnancy; O99.331 Smoking (tobacco) complicating pregnancy, first trimester; R10.30 Lower abdominal pain, unspecified; R10.10 Upper abdominal pain, unspecified; R19.7 Diarrhea, unspecified; F17.200 Nicotine dependence, unspecified, uncomplicated; Z67.40 Type O blood, Rh positive; Z3A.01 Less than 8 weeks gestation of pregnancy
CPT/HCPCS: 36415; 76705; 76801; 80053; 81003; 82150; 83605; 83690; 84702; 85025; 96361; 96374; 99284

== ENCOUNTER 2021-07-17 03:29 | Inpatient (IN) | payer OTHER ==
[2021-07-17] MEDS ORDERED: METHYLERGONOVINE 0.2 MG/ML 1 ML AMP IM PRN (03:45)
[2021-07-17] MEDS ORDERED: TERBUTALINE 1 MG/ML VIAL SQ PRN (03:45)
[2021-07-17] MEDS ORDERED: LIDOCAINE 1% (PF) 10 MG/ML (30 ML SDV) SQ PRN (03:45)
[2021-07-17] MEDS ORDERED: CARBOPROST TROMETHAMINE 250 MCG/ML 1 ML AMP IM PRN (03:45)
[2021-07-17] MEDS ORDERED: OXYTOCIN 10 UNIT/ML 1 ML VIAL IM PRN (03:45)
[2021-07-17 04:09] LABS: Basophils # (A) 0.1 k/uL (0-0.2); Basophils % (A) 1 %; Eosinophils # (A) 0.2 k/uL (0-0.7); Eosinophils % (A) 2 %; HCT 38.9 % (34.0-46.0); HGB 12.5 gm/dL (11.4-16.0); Lymphocytes # (A) 3.5 k/uL (1.0-4.8); Lymphocytes % (A) 23 %; MCH 28.7 pg (25.0-35.0); MCHC 32.2 g/dL (31.0-37.0); MCV 89.2 fL (80.0-100.0); Mean Platelet Volume 11.9; Monocytes # (A) 1.1 k/uL (0-1.0); Monocytes % (A) 7 %; Neutrophils # (A) 10.2 k/uL (1.3-7.7); Neutrophils % (A) 67 %; Platelet Count 227 k/uL (150-450); RBC 4.36 m/uL (3.80-5.40); RDW 14.4 % (11.5-15.5); WBC 15.4 k/uL (3.8-10.6)
[2021-07-17] MEDS ORDERED: AMPICILLIN 2,000 MG in SODIUM CHLORIDE 0.9% 100 ML IVPB STA (04:36)
--- NOTE | 2021-07-17 04:36 | P.HPOB ---
History of Present Illness H&P Date: 07/17/21 Chief Complaint: Contractions and leaking fluid This patient is a 35-year-old 3 para 2 female estimated date of confinement 08/06/2021 estimated gestational age 37 and one sevenths weeks who presents to labor and delivery with complaints of gush of fluid at 3 AM and contractions thereafter. Patient's care is per Dr. Garcia and Dr. Mcclain. Obstetrical history is such that she had a for her first baby and to her second baby. Patient has been counseled by Dr. Garcia during this she is requested a repeat . is been complicated by tobacco use. Otherwise appears uncomplicated. Rupture membranes was spontaneous appears to be meconium-stained fluid Review of Systems Genitourinary: Reports Menstruation: Reports amenorrhea Past Medical History Past Medical History: Syncope, Thyroid Disorder Additional Past Medical History / Comment(s): PVC's. Obstetrics history: First was a section for arrest to descend macrosomia. This is her second and she's had care with Dr. Lopez since the first trimester. Blood type is O+, antibodies negative, rubella immune, hepatitis B negative, HIV nonreactive, GBS positive. History of Any Multi-Drug Resistant Organisms: None Reported Past Surgical History: Section Past Anesthesia/Blood Transfusion Reactions: No Reported Reaction Past Psychological History: Anxiety, Depression Smoking Status: Never smoker - Past Family History Father Family Medical History: Hypertension Medications and Allergies Home Medications Medication Instructions Recorded Confirmed Type Venlafaxine HCl ER [Effexor Xr] 75 mg PO DAILY 12/11/20 07/17/21 History Pnv,Calcium 72/Iron/Folic Acid 1 each PO DAILY 07/17/21 07/17/21 History [ Plus Tablet] Allergies Allergy/AdvReac Type Severity Reaction Status Date / Time No Known Allergies Allergy Verified 07/17/21 03:41 Exam Vital Signs Temp Pulse Resp BP 07/17/21 03:40 96.3 F L 89 20 119/64 Intake and Output 07/16/21 07/16/21 07/17/21 14:59 22:59 06:59 Other: Weight 65.771 kg - OBG Physical Exam Abdomen: bowel sounds normal, no diffuse tenderness, no bruit present, no guarding noted, no hepatomegaly, no splenomegaly, no mass Vulva: both: normal Vagina: normal moisture, no discharge Cervix: no lesion (Cervix is 8 cm dilated completely effaced 0 station), no discharge Uterus: enlarged Results blood work shows she has a positive blood type. Glucola was abnormal with a normal three-hour gtt. Group B strep was negative however she had a positive group B strep with her second . Result Diagrams: 07/17/21 03:50 Abnormal Lab Results - Last 24 Hours (Table) 07/17/21 Range/Units 03:50 WBC 15.4 H (3.8-10.6) k/uL Assessment and Plan Assessment: This is a 35-year-old 3 para 2 female 37 and one sevenths weeks gestation admitted to labor and delivery with spontaneous rupture membranes for meconium-stained fluid, active labor, previous section with previous successful who desires repeat . Patient also had a positive group B strep with her second . Plan is antibiotic prophylaxis and anticipate vaginal after section. Patient's quite out of control at this time however I did discuss with her and her the meconium and her current clinical situation. She does desire to at this time. (1) 37 weeks gestation of Current Visit: Yes Status: Acute Code(s): Z3A.37 - 37 WEEKS GESTATION OF SNOMED Code(s): 22012372 (2) Normal labor Current Visit: Yes Status: Acute Code(s): O80 - ENCOUNTER FOR FULL-TERM UNCOMPLICATED DELIVERY; Z37.9 - OUTCOME OF DELIVERY, UNSPECIFIED SNOMED Code(s): 43571045 (3) Meconium in amniotic fluid Current Visit: Yes Status: Acute Code(s): P96.83 - MECONIUM STAINING SNOMED Code(s): 332586334 (4) History of group B Streptococcus (GBS) infection Current Visit: Yes Status: Acute Code(s): Z86.19 - PERSONAL HISTORY OF OTHER INFECTIOUS AND PARASITIC DISEASES SNOMED Code(s): 461195796 (5) Previous section Current Visit: No Status: Acute Code(s): Z98.891 - HISTORY OF UTERINE SCAR FROM PREVIOUS SURGERY SNOMED Code(s): 802883536 (6) Spontaneous rupture of membranes Current Visit: No Status: Acute Code(s): OOI8017 - SNOMED Code(s): 979259422
[2021-07-17] MEDS: LACTATED RINGERS 1,000 ML IV SCH ×2 (04:40→05:00)
[2021-07-17 04:43] LABS: Anisocytosis (M) Present; Large Platelets Present
--- NOTE | 2021-07-17 05:40 | P.PROBDLV ---
Vaginal Delivery Note - . Vaginal Delivery Note: Normal spontaneous vaginal delivery and delivery () viable female Apgars 8 and 9 delivery time is Please see dictated H&P for intimate details of this patient's admission. In brief summary is a pleasant 35-year-old 3 para 2 female 37 and one sevenths weeks gestation admitted to labor and delivery spontaneous rupture membranes for meconium-stained fluid at 3 AM this morning. Patient's had a previous section with her first baby and to her second baby has requested this . Patient's quite uncomfortable and a bit out of control therefore scalpel electrode was placed. She is 8 cm dilated. Patient spontaneously progresses quickly to complete this time pushes approximately 3 or 4 times pushes the head to the perineum. Posterior perineum is supported and we have controlled delivery of the infant's head over the intact perineum. Infant's head was straight occiput anterior presentation. Is no evidence of nuchal cord. Bulb suction was done of the mouth and nares. Anesthesia is present for delivery. With gentle downward traction we then have deliver the anterior and posterior shoulder and rest this 's body. This is a vigorous viable female Apgars are 8 and 9 delivery time is blank hours. After delivery of the the has spontaneous cry therefore is laid right on the mother's abdomen. After the cord was done pulsing is doubly clamped and cut. The placenta is then spontaneously delivered intact. It is meconium- stained. Note the had a multi loop area of cord around bilateral feet. Inspection of the perineum shows a superficial periurethral laceration. No r epairs required. S viable loss about 1 50 mL. There are no complications. Infant and mother are stable delivery room.
[2021-07-17] MEDS ORDERED: LANOLIN CREAM 5 GM TUBE TOPICAL PRN (06:07)
[2021-07-17] MEDS ORDERED: ZOLPIDEM 5 MG TAB PO PRN (06:07)
[2021-07-17] MEDS ORDERED: SIMETHICONE 80 MG CHEWABLE PO PRN (06:07)
[2021-07-17] MEDS ORDERED: diphenhydrAMINE 50 MG/ML 1 ML VIAL IVP PRN (06:07)
[2021-07-17] MEDS ORDERED: BENZOCAINE/MENTHOL SPRAY 1 GM/SPRAY AEROSOL TOPICAL PRN (06:07)
[2021-07-17] MEDS ORDERED: diphenhydrAMINE 25 MG CAP PO PRN (06:07)
[2021-07-17] MEDS ORDERED: bisacodyL 10 MG SUPP RECTAL PRN (06:07)
[2021-07-17] MEDS ORDERED: HYDROCORTISONE 2.5% RECTAL CREAM 30 GM TUBE RECTAL PRN (06:07)
[2021-07-17] MEDS ORDERED: OXYTOCIN 30 UNITS/500 ML NS 30 UNIT in SALINE 1 500ML.BAG IV SCH (06:15)
[2021-07-17] MEDS: ACETAMINOPHEN TAB 325 MG TAB PO PRN ×2 (06:30→15:00)
--- NOTE | 2021-07-17 08:13 | P.MSEPDOC ---
Presenting Problems - Arrival Data Date of Arrival on Unit: 07/17/21 Time of Arrival on Unit: 02:55 Mode of Transport: Wheelchair - Complaint OB-Reason for Admission/Chief Complaint: Possible Onset of Labor, Rule Out SROM Comment: SROM mec fluid at 0300 Medical History - Information : 3 Para: 2 Term: 2 : 0 Abortions: Spontaneous or Elective: 0 Number of Living Children: 2 - Gestational Age Gestational Age by HENRY (wks/days): 37 Weeks and 1 Days - History Complications: Prior Review of Systems - Review of Systems Constitutional: No problems Breast: No problems ENT: No problems Cardiovascular: No problems Respiratory: No problems Gastrointestinal: No problems Genitourinary: No problems Musculoskeletal: No problems Neurological: No problems Skin: No problems Vital Signs - Temperature Temperature: 97.7 F Temperature Source: Temporal Artery Scan - Pulse Right Supine Brachial Pulse Rate: 73 Pulse Assessment Method: Automatic Cuff - Respirations Respiratory Rate: 17 Oxygen Delivery Method: Room Air O2 Sat by Pulse Oximetry: 99 - Blood Pressure Right Arm Supine Blood Pressure: 123/78 Blood Pressure Mean: 93 Blood Pressure Source: Automatic Cuff Medical Screen Scoring - Cervical Exam Dilation (cm): 6 Effacement (%): 80 Station: -1 Membranes: Ruptured - Uterine Contractions Frequency From (mins): 2 Frequency To (mins): 3 Duration From (seconds): 60 Duration To (seconds): 90 Intensity: Strong Resting: Soft to palpation - Assessment - Baby A Baseline FHR: 140 Heart Rate - NICHD Category: Category I (Normal) NST: Reactive Physician Notification - Physician Notified Physician Notified Date: 07/17/21 Physician Notified Time: 03:42 Physician: Willem Harmon New Order Received: Yes - Notification Comment Comment: Admit for labor, enroute Maternal Triage Index - Maternal Triage Index Presenting for scheduled procedure w/no complaint: No - Stat/Priority 1 Stat Priority 1: No - Urgent/Priority 2 Urgent Priority 2: No - Prompt/Priority 3 Prompt Priority 3: Yes Criteria Met for Priority 3: SROM >34 weeks Disposition - Disposition OB Disposition: Admit I agree with the RN Medical Screening Exam: Yes Case reviewed; plan agreed upon as documented in EMR&OBIX.: Yes Diagnosis: ENCOUNTER FOR FULL-TERM UNCOMPLICATED DELIVERY
[2021-07-17] MEDS: IBUPROFEN 600 MG TAB PO PRN ×2 (08:46→18:26)
[2021-07-17] MEDS: SENNOSIDES-DOCUSATE SODIUM 1 EACH TAB PO SCH ×2 (08:46→20:00)
[2021-07-18 00:10] VITALS: TEMP 98.3
--- NOTE | 2021-07-18 06:37 | P.DS ---
Providers Date of admission: 07/17/21 03:45 Expected date of discharge: 07/18/21 Attending physician: Rosa M Garcia Primary care physician: Rosa M Garcia - Discharge Diagnosis(es) (1) Normal vaginal delivery Current Visit: Yes Status: Acute Hospital Course: Patient presented and active labor. She underwent a normal vaginal delivery. course was uncomplicated. She denies nausea, vomiting, chest pain, shortness of breath or any calf pain. Patient will be discharged home day #1 in stable condition to follow-up with me in 6 weeks. Plan - Discharge Summary New Discharge Prescriptions: New Ibuprofen [Motrin] 600 mg PO Q6HR PRN #30 tab PRN Reason: Mild Pain (Scale 1 To 3) No Action Venlafaxine HCl ER [Effexor Xr] 75 mg PO DAILY Pnv,Calcium 72/Iron/Folic Acid [ Plus Tablet] 1 each PO DAILY Discharge Medication List Venlafaxine HCl ER [Effexor Xr] 75 mg PO DAILY 12/11/20 [History] Pnv,Calcium 72/Iron/Folic Acid [ Plus Tablet] 1 each PO DAILY 07/17/21 [History] Ibuprofen [Motrin] 600 mg PO Q6HR PRN #30 tab 07/18/21 [Rx] Follow up Appointment(s)/Referral(s): Rosa M Garcia DO [Primary Care Provider] - 09/05/21 11:15 am Discharge Disposition: HOME SELF-CARE
[2021-07-18 07:11] LABS: Basophils # (A) 0.1 k/uL (0-0.2); Basophils % (A) 1 %; Eosinophils # (A) 0.2 k/uL (0-0.7); Eosinophils % (A) 2 %; HCT 35.2 % (34.0-46.0); HGB 11.3 gm/dL (11.4-16.0); Lymphocytes # (A) 2.6 k/uL (1.0-4.8); Lymphocytes % (A) 25 %; MCH 29.4 pg (25.0-35.0); MCHC 32.1 g/dL (31.0-37.0); MCV 91.6 fL (80.0-100.0); Mean Platelet Volume 11.7; Monocytes # (A) 0.6 k/uL (0-1.0); Monocytes % (A) 6 %; Neutrophils # (A) 6.9 k/uL (1.3-7.7); Neutrophils % (A) 65 %; Platelet Count 218 k/uL (150-450); RBC 3.85 m/uL (3.80-5.40); RDW 14.4 % (11.5-15.5); WBC 10.6 k/uL (3.8-10.6)
[2021-07-18 07:47] VITALS: BP 113/72; PULSE 70; RESP 20
[2021-07-18] MEDS: SENNOSIDES-DOCUSATE SODIUM 1 EACH TAB PO SCH (08:37)
== END 2021-07-18 09:00 | disposition home or self-care (01) | DRG 807 ==
LOC: FBPOP 03:29 → 4FBP 03:45
PROVIDERS: ADMIT Obstetrics & Gynecology; ATTEND Obstetrics & Gynecology
PROC: 10E0XZZ Delivery of Products of Conception, External Approach (ICD-10-PCS; principal; 2021-07-17)
PROC: 10H073Z Insertion of Monitoring Electrode into Products of Conception, Via Natural or Artificial Opening (ICD-10-PCS; principal; 2021-07-17)
DX: O34.219 Maternal care for unspecified type scar from previous cesarean delivery (principal); Z37.0 Single live birth; O62.3 Precipitate labor; O42.92 Full-term premature rupture of membranes, unspecified as to length of time between rupture and onset of labor; F17.210 Nicotine dependence, cigarettes, uncomplicated; O99.824 Streptococcus B carrier state complicating childbirth; F32.A Depression, unspecified; F41.9 Anxiety disorder, unspecified; O71.82 Other specified trauma to perineum and vulva; O77.0 Labor and delivery complicated by meconium in amniotic fluid; O99.334 Smoking (tobacco) complicating childbirth; O99.344 Other mental disorders complicating childbirth; Z3A.37 37 weeks gestation of pregnancy; Z79.899 Other long term (current) drug therapy
CPT/HCPCS: 85025; 86850; 86900; 86901; 99213

== ENCOUNTER → 2022-07-08 | Outpatient (CLI) | payer OTHER ==
[2022-07-09 03:36] LABS: Anti-Smith Ab Interp NEGATIVE (NEGATIVE); DNA Double-Stranded NEGATIVE (NEGATIVE)
[2022-07-09 10:47] LABS: Angiotensin-1 Converting Enz. 27 U/L (8-52)
[2022-07-09 13:47] LABS: C-ANCA <1:20 Titer (<1:20)
== END | disposition home or self-care (01) ==
LOC: LABWHC1 16:11
PROVIDERS: ATTEND Otolaryngology
DX: J34.89 Other specified disorders of nose and nasal sinuses (principal)
CPT/HCPCS: 36415; 82164; 86038; 86225; 86235; 86255

== ENCOUNTER → 2022-08-11 | Outpatient (CLI) | payer OTHER ==
--- NOTE | 2022-08-12 08:52 | CT ---
EXAMINATION TYPE: CT sinus wo con DATE OF EXAM: 08/11/2022 COMPARISON: NONE HISTORY: Nasal septal perforation CT DLP: 412 mGycm. Automated Exposure Control for Dose Reduction was Utilized. TECHNIQUE: CT scan of the sinuses is performed without contrast, axial images are obtained, coronal r eformatted images are also reviewed. FINDINGS: Mild to borderline moderate mucosal thickening greatest inferior bilateral maxillary sinuse s left greater than right. Mild/moderate mucosal thickening involving anterior ethmoid sinuses bilate rally. Mild to moderate mucosal thickening involving inferior left frontal sinus. Remainder of the pa ranasal sinuses are clear without suspicious opacification or air-fluid levels The ostiomeatal comple x is occluded on the right due to antral mucosal thickening and patent on the left. Nasal septum is d eviated to left of midline inferiorly. Visualized portion of mastoid air cells show no abnormal opacification. The globes are intact bilate rally. IMPRESSION: Chronic paranasal sinus disease as detailed above. No acute sinusitis.
== END | disposition home or self-care (01) ==
LOC: RADCTMAIN 16:23
PROVIDERS: ATTEND Otolaryngology
DX: J32.8 Other chronic sinusitis (principal); J34.89 Other specified disorders of nose and nasal sinuses
CPT/HCPCS: 70486

== ENCOUNTER → 2023-03-18 | Outpatient (CLI) | payer OTHER | END | disposition home or self-care (01) | LOC: LABWHC1 15:37 | PROVIDERS: ATTEND Obstetrics & Gynecology | DX: N92.6 Irregular menstruation, unspecified (principal) | CPT/HCPCS: 36415; 84702 ==

== ENCOUNTER → 2023-03-24 | Outpatient (CLI) | payer OTHER | END | disposition home or self-care (01) | LOC: LABWHC1 13:09 | PROVIDERS: ATTEND Obstetrics & Gynecology | DX: N92.6 Irregular menstruation, unspecified (principal) | CPT/HCPCS: 36415; 84702 ==

== ENCOUNTER 2023-03-26 15:30 | Emergency (ER) | payer OTHER ==
--- NOTE | 2023-03-26 15:50 | ED ---
General Adult HPI - General Source: patient, RN notes reviewed Mode of arrival: ambulatory Limitations: no limitations <Nicholas Squires - Last Filed: 03/26/23 15:47> - General Source: patient, RN notes reviewed, old records reviewed <Tevin Campos - Last Filed: 03/26/23 18:50> - General Stated complaint: lower left pelvic pain, 8 wks pg Time Seen by Provider: 03/26/23 15:47 - History of Present Illness Initial comments: 37-year-old female presents emergency Department with chief complaint of abdominal pain . Patient states some left lower quadrant abdominal p ain. Patient states she's having some spotting today. Her DIRECTOR HR COMMUNICATIONS is Dr. Garcia who has been following her blood work. Patient is O+ blood type. (Nicholas Squires) Patient is a 37-year-old female presents emergency Department for abdominal pain, cramping, as well as mild spotting in today. Does follow up with Dr. Garcia. Contacted her DIRECTOR HR COMMUNICATIONS who recommended it, to the emergency department for evaluation. Blood work is pending the patient already received an ultrasound. She states the pain is mostly in the left lower quadrant. Comes and goes. Discusses achy. Was concerned due to the spotting. Denies any dysuria hematuria. Denies any vaginal discharge otherwise. Patient has a , with no other prior compensations with previous pregnancies.. (Tevin Campos) - Related Data Home Medications Medication Instructions Recorded Confirmed Venlafaxine HCl ER [Effexor Xr] 75 mg PO DAILY 12/11/20 07/17/21 Vit No.180/Iron/Folic 1 each PO DAILY 07/17/21 07/17/21 [ Plus Tablet] Previous Rx's Medication Instructions Recorded Ibuprofen [Motrin] 600 mg PO Q6HR PRN #30 tab 07/18/21 Allergies Allergy/AdvReac Type Severity Reaction Status Date / Time No Known Allergies Allergy Verified 03/26/23 16:31 Review of Systems ROS Other: All systems not noted in ROS Statement are negative. <Nicholas Squires - Last Filed: 03/26/23 15:47> ROS Other: All systems not noted in ROS Statement are negative. <Tevin Campos - Last Filed: 03/26/23 18:50> ROS Statement: Those systems with pertinent positive or pertinent negative responses have been documented in the HPI. Review of Systems: CONST: Denies fever EYES: Denies blurry vision ENT: Denies nasal congestion C/V: Denies Chest pain RESP: Denies shortness of breath GI: Endorses lower abdominal pain : Denies dysuria SKIN: Denies rash. MSK: Denies joint pain. NEURO: Denies headache (Tevin Campos) Past Medical History Past Medical History: Syncope, Thyroid Disorder Additional Past Medical History / Comment(s): PVC's. Obstetrics history: First was a section for arrest to descend macrosomia. This is her second and she's had care with Dr. Lopez since the first trimester. Blood type is O+, antibodies negative, rubella immune, hepatitis B negative, HIV nonreactive, GBS positive. History of Any Multi-Drug Resistant Organisms: None Reported Past Surgical History: Section Past Anesthesia/Blood Transfusion Reactions: No Reported Reaction Past Psychological History: Anxiety, Depression Smoking Status: Never smoker - Past Family History Father Family Medical History: Hypertension <Nicholas Squires - Last Filed: 03/26/23 15:47> General Exam <Nicholas Squires - Last Filed: 03/26/23 15:47> <Tevin Campos - Last Filed: 03/26/23 18:50> - General Exam Comments Initial Comments: Visual Physical Exam Vital signs reviewed General: Well-appearing, nontoxic, no acute distress. Head: Normocephalic, atraumatic Eyes: PERRLA, EOMI ENT: Airway patent Chest: Nonlabored breathing Skin: No visual rash, normal skin tone Neuro: Alert and oriented 3 Musculoskeletal: No gross abnormalities (Nicholas Squires) General: Appears in no acute distress. HEAD: Normal with no signs of head trauma. EYES: EOMI ENT: Hearing grossly intact, normal oropharynx. RESPIRATORY: Clear breath sounds bilaterally. No wheezes, rales, or rhonchi. C/V: Regular rate and rhythm. S1 and S2 auscultated, no edema, peripheral pulses 2+ and intact throughout ABD: Abd is soft, nondistended with no significant tenderness in the lower quadrant. EXT: Normal range of motion, no obvious deformity SKIN: No rashes or lesions observed on exposed skin. NEURO: Alert and oriented x 4. (Tevin Campos) Course Vital Signs 03/26/23 03/26/23 03/26/23 16:29 17:31 18:34 Temperature 98.1 F 97.9 F 98.3 F Pulse Rate 67 87 92 Respiratory 18 20 16 Rate Blood Pressure 117/67 107/73 107/79 O2 Sat by Pulse 100 100 98 Oximetry Medical Decision Making <Nicholas Squires - Last Filed: 03/26/23 15:47> - Lab Data Result diagrams: 03/26/23 17:46 03/26/23 17:46 <Tevin Campos - Last Filed: 03/26/23 18:50> - Medical Decision Making I completed the quick note portion of this chart signed Nicholas Squires PA-C (Nicholas Squires) Was pt. sent in by a medical professional or institution ([facility], [facility], urgent care, hospital, or jail...) When possible be specific @ -No Did you speak to anyone other than the patient for history (EMS, parent, family, police, friend...)? What history was obtained from this source @ -No Did you review nursing and triage notes (agree or disagree)? Why? @ -I reviewed and agree with nursing and triage notes Were old charts reviewed (outside hosp., previous admission, EMS record, old EKG, old radiological studies, urgent care reports/EKG's, jail records)? Report findings @ -No old charts were reviewed Differential Diagnosis (chest pain, altered mental status, abdominal pain women, abdominal pain men, vaginal bleeding, weakness, fever, dyspnea, syncope, headache, dizziness, GI bleed, back pain, seizure, CVA, palpatations, mental health, musculoskeletal)? @ -Miscarriage, vaginal bleeding in , spotting, abdominal pain of unknown etiology. UTI. This list is not all-inclusive. EKG interpreted by me (3pts min.). @ -None done X-rays interpreted by me (1pt min.). @ -None done CT interpreted by me (1pt min.). @ -None done U/S interpreted by me (1pt. min.). @ -Ultrasound revealed a definitive IUP with no evidence of subchorionic hemorrhage or other complication. Heart rate is 116 bpm. Gestational Age estimated to be 6 weeks and 3 days. What testing was considered but not performed or refused? (CT, X-rays, U/S, labs)? Why? @ -None What meds were considered but not given or refused? Why? @ -None Did you discuss the management of the patient with other professionals (professionals i.e. , PA, [facility], lab, RT, psych nurse, child welfare social worker, workers compensation administrator, teacher, environmental conservation officer, clinical case manager)? Give summary @ -No Was smoking cessation discussed for >3mins.? @ -No Was critical care preformed (if so, how long)? @ -No Were there social determinants of health that impacted care today? How? (Homelessness, low income, unemployed, alcoholism, drug addiction, transportation, low edu. Level, literacy, decrease access to med. care, detention, rehab)? @ -No Was there de-escalation of care discussed even if they declined (Discuss DNR or withdrawal of care, Hospice)? DNR status @ -No What co-morbidities impacted this encounter? (DM, HTN, Smoking, COPD, CAD, Cancer, CVA, ARF, Chemo, Hep., AIDS, mental health diagnosis, sleep apnea, morbid obesity)? @ -None Was patient admitted / discharged? Hospital course, mention meds given and route, prescriptions, significant lab abnormalities, going to OR and other pertinent info. @ -Based on patient's presentation and physical exam, presents with vaginal spotting and cramping in . We will obtain basic labs, as well as an ultrasound of the uterus. Patient was in agreement this plan. Originally evaluated as a quick no. ultrasound shows a definitive IUP with adequate heart rate. Gestational age estimated to the 6 weeks and 3 days. Patient's b lood work returned unremarkable. No anemia. Urinalysis within except for limits. Patient is known to be O+ and therefore does not require oh came. I discussed results with the patient. Discussed she distinctly fonder category of possible threatened miscarriage. We did discuss this. She will follow-up with Dr. Garcia. She is no other acute complaints at this time. I instructed the patient to follow up with their PCP in the next 1-3 days. I explained that the patient should return to the emergency department if they experience any worsening symptoms. Strict return precautions were discussed with the patient. The patient expressed understanding of these instructions. I a nswered all questions that the patient had. The patient was discharged home in good condition with their prescriptions and follow up information. Undiagnosed new problem with uncertain prognosis? @ -No Drug Therapy requiring intensive monitoring for toxicity (Heparin, Nitro, Insulin, Cardizem)? @ -No Were any procedures done? @ -No Diagnosis/symptom? @ -Threatened miscarriage Acute, or Chronic, or Acute on Chronic? @ -Acute Uncomplicated (without systemic symptoms) or Complicated (systemic symptoms)? @ -Uncomplicated Side effects of treatment? @ -No Exacerbation, Progression, or Severe Exacerbation? @ -No Poses a threat to life or bodily function? How? (Chest pain, [place], [place], pneumonia, PE, COPD, DKA, ARF, appy, cholecystitis, CVA, Diverticulitis, Homicidal, Suicidal, threat to staff... and all critical care pts) @ -Unlikely (Tevin Campos) - Lab Data Lab Results 03/26/23 03/26/23 03/26/23 Range/Units 16:28 17:46 17:46 WBC 12.5 H (3.8-10.6) k/uL RBC 4.27 (3.80-5.40) m/uL Hgb 13.7 (11.4-16.0) gm/dL Hct 38.7 (34.0-46.0) % MCV 90.6 (80.0-100.0) fL MCH 32.2 (25.0-35.0) pg MCHC 35.5 (31.0-37.0) g/dL RDW 11.8 (11.5-15.5) % Plt Count 383 (150-450) k/uL MPV 7.5 Neutrophils % 68 % Lymphocytes % 21 % Monocytes % 4 % Eosinophils % 5 % Basophils % 1 % Neutrophils # 8.6 H (1.3-7.7) k/uL Lymphocytes # 2.6 (1.0-4.8) k/uL Monocytes # 0.5 (0-1.0) k/uL Eosinophils # 0.6 (0-0.7) k/uL Basophils # 0.1 (0-0.2) k/uL PT 9.6 L (10.0-12.5) sec INR 0.8 (<1.2) APTT 27.2 (22.0-30.0) sec Sodium (137-145) mmol/L Potassium (3.5-5.1) mmol/L Chloride (98-107) mmol/L Carbon Dioxide (22-30) mmol/L Anion Gap mmol/L BUN (7-17) mg/dL Creatinine (0.52-1.04) mg/dL Est GFR (CKD-EPI)AfAm (>60 ml/min/1.73 sqM) Est GFR (CKD-EPI)NonAf (>60 ml/min/1.73 sqM) Glucose (74-99) mg/dL Calcium (8.4-10.2) mg/dL Urine Color Yellow Urine Appearance Cloudy H (Clear) Urine pH 6.5 (5.0-8.0) Ur Specific [place] 1.026 (1.001-1.035) Urine Protein Trace H (Negative) Urine Glucose (UA) Negative (Negative) Urine Ketones Negative (Negative) Urine Blood Negative (Negative) Urine Nitrite Negative (Negative) Urine Bilirubin Negative (Negative) Urine Urobilinogen 2.0 (<2.0) mg/dL Ur Leukocyte Esterase Negative (Negative) Urine RBC 1 (0-5) /hpf Urine WBC 2 (0-5) /hpf Ur Squamous Epith Cells 12 H (0-4) /hpf Urine Mucus Rare H (None) /hpf 03/26/23 Range/Units 17:46 WBC (3.8-10.6) k/uL RBC (3.80-5.40) m/uL Hgb (11.4-16.0) gm/dL Hct (34.0-46.0) % MCV (80.0-100.0) fL MCH (25.0-35.0) pg MCHC (31.0-37.0) g/dL RDW (11.5-15.5) % Plt Count (150-450) k/uL MPV Neutrophils % % Lymphocytes % % Monocytes % % Eosinophils % % Basophils % % Neutrophils # (1.3-7.7) k/uL Lymphocytes # (1.0-4.8) k/uL Monocytes # (0-1.0) k/uL Eosinophils # (0-0.7) k/uL Basophils # (0-0.2) k/uL PT (10.0-12.5) sec INR (<1.2) APTT (22.0-30.0) sec Sodium 136 L (137-145) mmol/L Potassium 4.0 (3.5-5.1) mmol/L Chloride 104 (98-107) mmol/L Carbon Dioxide 20 L (22-30) mmol/L Anion Gap 12 mmol/L BUN 9 (7-17) mg/dL Creatinine 0.48 L (0.52-1.04) mg/dL Est GFR (CKD-EPI)AfAm >90 (>60 ml/min/1.73 sqM) Est GFR (CKD-EPI)NonAf >90 (>60 ml/min/1.73 sqM) Glucose 117 H (74-99) mg/dL Calcium 9.2 (8.4-10.2) mg/dL Urine Color Urine Appearance (Clear) Urine pH (5.0-8.0) Ur Specific [place] (1.001-1.035) Urine Protein (Negative) Urine Glucose (UA) (Negative) Urine Ketones (Negative) Urine Blood (Negative) Urine Nitrite (Negative) Urine Bilirubin (Negative) Urine Urobilinogen (<2.0) mg/dL Ur Leukocyte Esterase (Negative) Urine RBC (0-5) /hpf Urine WBC (0-5) /hpf Ur Squamous Epith Cells (0-4) /hpf Urine Mucus (None) /hpf Disposition <Nicholas Squires - Last Filed: 03/26/23 15:47> Is patient prescribed a controlled substance at d/c from ED?: No Time of Disposition: 18:18 <Tevin Campos - Last Filed: 03/26/23 18:50> Clinical Impression: Threatened miscarriage Disposition: HOME SELF-CARE Condition: Good Instructions (If sedation given, give patient instructions): Threatened Miscarriage (ED) Referrals: None,Stated [Primary Care Provider] - 1-2 days
--- NOTE | 2023-03-26 16:19 | US ---
EXAMINATION TYPE: Transabdominal DATE OF EXAM: 03/26/2023 4:09 PM COMPARISON: NONE CLINICAL INDICATION: Female, 37 years old with history of pain, bleeding; Pt states LLQ pain and spot ting EXAM PERFORMED: Transabdominal (TA) EXAM MEASUREMENTS: GESTATIONAL AGE / DATING Physician Established: Not yet established Dates by LMP: (7 weeks/5 days) EDC: 11/07/2023 Dates by First Scan: No previous this is first scan Dates by Current Scan for: (6 weeks/3 days) EDC: 11/16/2023 MATERNAL ANATOMY Uterus: 9.1 x 5.3 x 6.0 cm Right Ovary: 2.7 x 2.4 x 2.1 cm Left Ovary: 3.2 x 2.2 x 2.2 cm Post CDS / Adnexa: wnl Presence of free fluid: No Presence of corpus luteal cyst: Left Ovary= 1.9 x 1.8 x 1.6 cm Presence of subchorionic bleed: No GESTATION / SURVEY CRL: 5.8 cm (6 weeks/3 days) MSD: wnl Yolk Sac (normal less than 6mm): 3mm Heart Rate: 116 bpm Rhythm: Normal IUP: Viable IUP Date of LMP: 01/31/2023 Beta HcG (if available): Not available at this time Single, viable IUP/ No abnormality visualized at this time IMPRESSION: Single live intrauterine gestational, ultrasound age 6 weeks 3 days. Additional information as descri bed above.
[2023-03-26 17:19] LABS: Appearance,Urine Cloudy (Clear); Bilirubin,Urine Negative (Negative); Blood,Urine Negative (Negative); Color,Urine Yellow; Glucose,Urine (UA) Negative (Negative); Ketones,Urine Negative (Negative); Leukocyte Esterase,Urine Negative (Negative); Mucus,Urine Rare /hpf; Nitrite,Urine Negative (Negative); PH, Urine 6.5 (5.0-8.0); Protein,Urine Trace (Negative); RBC,Urine 1 /hpf (0-5); Specific Gravity,Urine 1.026 (1.001-1.035); Squamous Epithelial Cell,Urine 12 /hpf (0-4); WBC,Urine 2 /hpf (0-5)
[2023-03-26 18:07] LABS: Basophils # (A) 0.1 k/uL (0-0.2); Basophils % (A) 1 %; Eosinophils # (A) 0.6 k/uL (0-0.7); Eosinophils % (A) 5 %; HCT 38.7 % (34.0-46.0); HGB 13.7 gm/dL (11.4-16.0); Lymphocytes # (A) 2.6 k/uL (1.0-4.8); Lymphocytes % (A) 21 %; MCH 32.2 pg (25.0-35.0); MCHC 35.5 g/dL (31.0-37.0); MCV 90.6 fL (80.0-100.0); Mean Platelet Volume 7.5; Monocytes # (A) 0.5 k/uL (0-1.0); Monocytes % (A) 4 %; Neutrophils # (A) 8.6 k/uL (1.3-7.7); Neutrophils % (A) 68 %; Platelet Count 383 k/uL (150-450); RBC 4.27 m/uL (3.80-5.40); RDW 11.8 % (11.5-15.5); WBC 12.5 k/uL (3.8-10.6)
[2023-03-26 18:16] LABS: INR 0.8 (<1.2); Partial Thromboplastin Time 27.2 sec (22.0-30.0); Prothrombin Time 9.6 sec (10.0-12.5)
[2023-03-26 18:21] LABS: African American GFR (CKD) >90 (>60 ml/min/1.73 sqM); Anion Gap 12 mmol/L; Blood Urea Nitrogen 9 mg/dL (7-17); Calcium 9.2 mg/dL (8.4-10.2); Carbon Dioxide 20 mmol/L (22-30); Chloride 104 mmol/L (98-107); Glucose 117 mg/dL (74-99); Non-African American GFR(CKD) >90 (>60 ml/min/1.73 sqM); Sodium 136 mmol/L (137-145)
[2023-03-26 18:58] VITALS: BP 107/79; PULSE 92; RESP 16; TEMP 98.3
== END 2023-03-26 18:39 | disposition home or self-care (01) ==
LOC: EC 15:30
DX: O20.0 Threatened abortion (principal); O99.341 Other mental disorders complicating pregnancy, first trimester; F32.A Depression, unspecified; F41.9 Anxiety disorder, unspecified; Z79.899 Other long term (current) drug therapy; Z3A.01 Less than 8 weeks gestation of pregnancy
CPT/HCPCS: 36415; 76801; 80048; 81001; 85025; 85610; 85730; 99284

== ENCOUNTER → 2023-05-04 | Outpatient (CLI) | payer OTHER | END | disposition home or self-care (01) | LOC: LABWHC1 09:26 | DX: Z53.9 Procedure and treatment not carried out, unspecified reason (principal) ==

== ENCOUNTER → 2023-05-07 | Outpatient (CLI) | payer OTHER ==
[2023-05-07 15:27] LABS: HCT 36.2 % (37.2-46.3); HGB 11.9 g/dL (12.0-15.0); MCH 30.5 pg (27.0-32.0); MCHC 32.9 g/dL (32.0-37.0); MCV 92.8 FL (80.0-97.0); Mean Platelet Volume 10.4 FL (9.5-12.2); NRBC Per 100 WBC 0 X 10*3/uL (0.00-0.01); Platelet Count 339 X 10*3/uL (140-440); RDW 13.1 % (11.5-14.5); WBC 11.63 X 10*3/uL (4.50-10.00)
[2023-05-07 15:50] LABS: Glucose 67 mg/dL (70-110)
[2023-05-07 16:01] LABS: Hepatitis B Surface Antigen Nonreactive; Hepatitis C IgG Antibody Nonreactive
== END | disposition home or self-care (01) ==
LOC: LABWHC1 11:18
PROVIDERS: ATTEND Obstetrics & Gynecology
DX: Z34.81 Encounter for supervision of other normal pregnancy, first trimester (principal); Z3A.00 Weeks of gestation of pregnancy not specified
CPT/HCPCS: 36415; 82565; 82947; 85027; 86762; 86780; 86803; 86850; 86900; 86901; 87340; 87390

== ENCOUNTER → 2023-06-24 | Outpatient (CLI) | payer OTHER ==
--- NOTE | 2023-06-24 11:59 | US ---
EXAMINATION TYPE: US OB anatomy transabd DATE OF EXAM: 06/24/2023 COMPARISON: 03/26/2023 CLINICAL INDICATION: Female, 37 years old with history of O36.62X0 MATERNAL CARE FOR EXCESS MUNIR WT, SE; Anatomy TECHNIQUE: Transabdominal (TA) EXAM MEASUREMENTS: GESTATIONAL AGE / DATING Physician Established: (19 weeks/0 days) EDC: 11/18/2023 Dates by LMP: (20 weeks/4 days) EDC: 11/07/2023 Dates by First Scan: ( weeks/ days) EDC: Dates by Current Scan for: (19 weeks/1 days) EDC: 11/17/2023 SURVEY IUP: Single PLACENTA: Posterior PREVIA: No previa VAUGHN: 8.5 cm Normal CERVICAL LENGTH (transabdominal: norm > 3.0cm): 3.0 cm CERVICAL LENGTH (transvaginal: norm> 2.5cm): cm (Supplemental transvaginal imaging performed to verify cervical length.) BIOMETRY PRESENTATION: Variable LIE: Oblique BPD: 4.2 cm 18 weeks / 6 days HC: 19.95 cm 18 weeks / 6 days AC: 14.51 cm 19 weeks / 6 days FL: 2.91 cm 19 weeks / 0 days ESTIMATED WEIGHT IN GRAMS: 287 grams ESTIMATED WEIGHT IN LBS/OZ: 0 lbs. 10 oz. WEIGHT PERCENTAGE BASED ON ESTABLISHED DATE: 4 % HC/AC: 1.10 Normal FL/AC: 20% Normal HEART RATE: 139 bpm RHYTHM: Normal ANATOMY SEEN (within normal limits): * Lateral Vent (< 1 cm) 0.92 cm * Cisterna Magna (< 1.1 cm) 0.32 cm * Nuchal Fold (< 0.6 cm) 0.47 cm * Cerebellum (varies with age) 2.03 cm Choroid Plexus (bilateral) Midline Falx Cavus Septi Pellucidi Four Chamber Heart Outflow tracts: LVOT/RVOT Stomach Situs Nose / Lips Diaphragm Kidneys (bilateral) Bladder Cord Insert Longitudinal Spine Transverse Spine Arms (bilateral) Legs (bilateral) ANATOMY SEEN (does not appear within normal limits): ? 2 vessel cord ANATOMY NOT SEEN: All anatomy seen on this exam IMPRESSION: 1. Single intrauterine gestation estimated at 19 weeks 1 day gestation based on current ultrasound me asurements. Cardiac activity measures 139 bpm. 2. There is a two-vessel cord, reconsider additional workup
== END | disposition home or self-care (01) ==
LOC: RADUSWWP 10:12
PROVIDERS: ATTEND Obstetrics & Gynecology
DX: O36.62X0 Maternal care for excessive fetal growth, second trimester, not applicable or unspecified (principal); Z3A.19 19 weeks gestation of pregnancy
CPT/HCPCS: 76811

== ENCOUNTER 2023-11-07 03:05 | Inpatient (IN) | payer OTHER | END 2023-11-08 11:40 | disposition home or self-care (01) | DRG 560 | LOC: 4FBP 03:05 | PROVIDERS: ADMIT Obstetrics & Gynecology; ATTEND Obstetrics & Gynecology | PROC: 10E0XZZ Delivery of Products of Conception, External Approach (ICD-10-PCS; principal; 2023-11-07) | DX: O99.334 Smoking (tobacco) complicating childbirth (principal); F17.200 Nicotine dependence, unspecified, uncomplicated; Z3A.38 38 weeks gestation of pregnancy; Z37.0 Single live birth; Z79.899 Other long term (current) drug therapy ==

== ENCOUNTER 2024-02-29 09:23 | Day surgery (SDC) | payer OTHER ==
[2024-02-25 12:05] VITALS: BMI 20.6
--- NOTE | 2024-02-29 07:48 | P.HPOB ---
History of Present Illness H&P Date: 02/29/24 Chief Complaint: family planning 38 year old presents for laparosocpic tubal ligation. Review of Systems All systems: negative Constitutional: Denies chills, Denies fever Eyes: denies blurred vision, denies pain Ears, nose, mouth and throat: Denies headache, Denies sore throat Cardiovascular: Denies chest pain, Denies shortness of breath Respiratory: Denies cough Gastrointestinal: Denies abdominal pain, Denies diarrhea, Denies nausea, Denies vomiting Genitourinary: Denies dysuria, Denies hematuria Musculoskeletal: Denies myalgias Integumentary: Denies pruritus, Denies rash Neurological: Denies numbness, Denies weakness Psychiatric: Denies anxiety, Denies depression Endocrine: Denies fatigue, Denies weight change Past Medical History Past Medical History: Syncope, Thyroid Disorder Additional Past Medical History / Comment(s): PVC's, NON GROWING THYROID NODULE History of Any Multi-Drug Resistant Organisms: None Reported Past Surgical History: Section Additional Past Surgical History / Comment(s): WISDOM TEETH PULLED UNDER ANESTHESIA Past Anesthesia/Blood Transfusion Reactions: No Reported Reaction Additional Past Anesthesia/Blood Transfusion Reaction / Comment(s): NO BLOOD TRANSFUSION Smoking Status: Current every day smoker - Past Family History Father Family Medical History: Hypertension Medications and Allergies Home Medications Medication Instructions Recorded Confirmed Type Venlafaxine HCl ER [Effexor Xr] 75 mg PO DAILY 12/11/20 02/25/24 History Allergies Allergy/AdvReac Type Severity Reaction Status Date / Time No Known Allergies Allergy Verified 02/25/24 11:49 Exam Osteopathic Statement: *. No significant issues noted on an osteopathic structural exam other than those noted in the History and Physical/Consult. Heart: RRR Lungs: CTAB Abdomern: soft, nontender Extremeties: neg bruce's Assessment and Plan (1) Family planning Status: Acute Code(s): Z30.09 - ENCOUNTER FOR OTH GENERAL CNSL AND ADVICE ON CONTRACEPTION SNOMED Code(s): 436445478 Plan: laparoscopic tubal ligation
[~2024-02-29 09:23] MED LIST: Pre Op ABX Message 1 EACH MISC MISCELLANE ONE
[2024-02-29] MEDS: BUPIVACAINE (PF) 0.25% 30 ML VIAL SQ ONE ×2 (10:03→10:41)
[2024-02-29] MEDS: IV FLUID CONTINUATION 1,000 ML IV ONE (10:04)
[2024-02-29] MEDS: LACTATED RINGERS 1,000 ML IV SCH (10:10)
[2024-02-29] MEDS: DEXAMETHASONE SOD PHOSPHATE 4 MG/ML 1 ML VIAL IV ONE (10:10)
[2024-02-29] MEDS: ONDANSETRON 4 MG/2 ML VIAL IVP ONE (10:10)
[2024-02-29] MEDS ORDERED: GLYCOPYRROLATE 0.2 MG/ML 2 ML VIAL ONE (10:13)
[2024-02-29] MEDS ORDERED: SUCCINYLCHOLINE CHLORIDE 200 MG/10 ML VIAL IV ONE (10:13)
[2024-02-29] MEDS ORDERED: fentaNYL (PF) 50 MCG/ML 2 ML AMP ONE (10:13)
[2024-02-29] MEDS ORDERED: ROCURONIUM 10 MG/ML (5 ML VIAL) IV ONE (10:13)
[2024-02-29] MEDS ORDERED: LIDOCAINE 1% INJ 10MG/ML (20 ML MDV) ONE (10:13)
[2024-02-29] MEDS ORDERED: NEOSTIGMINE 1 MG/ML 10 ML VIAL ONE (10:13)
[2024-02-29] MEDS ORDERED: MIDAZOLAM 2 MG/2 ML VIAL ONE (10:13)
[2024-02-29] MEDS ORDERED: PROPOFOL 10 MG/ML 20 ML VIAL IV ONE (10:13)
[2024-02-29] MEDS ORDERED: KETOROLAC 15 MG/ML 1 ML VIAL ONE (10:13)
--- NOTE | 2024-02-29 10:50 | P.OP ---
Date of Procedure: 02/29/24 Preoperative Diagnosis: 1. family planning Postoperative Diagnosis: 1.family planning Procedure(s) Performed: laparoscopic tubal ligation Anesthesia: SVETLANA Surgeon: Rosa M Garcia Estimated Blood Loss (ml): 2 IV fluids (ml): 300 Urine output (ml): 25 Pathology: none sent Condition: stable Disposition: PACU Operative Findings: uterus tubes and ovaries. There was some scar tissue from the fundus of the uterus to the anterior wall of the abdomen Description of Procedure: Patient was taken to the operating room where general anesthesia was obtained without difficulty. She was prepped and draped in normal sterile fashion in the dorsal lithotomy position, legs placed in the Miquel stirrups. Bladder drained of all urine. [place] speculum placed in the vagina and the anterior lip the cervix was grasped with single-tooth tenaculum. The uterus is sounded to 7 cm and the kroner manipulator was placed. Attention was then turned to the abdomen and gloves were changed. A 10 mm infraumbilical incision was made the scalpel and 10 mm optical trocar was placed under direct visualization. A 5 mm suprapubic Incision was made and a 5 mm optical trocar was placed under direct visualization. Survey of the pelvis revealed normal uterus tubes and ovaries. There is an area of the fundus/anterior uterus that is adhesed to the anterior abdominal wall. The left fallopian tube was grasped with a Kleppinger and fulgurated 2-3 cm on this side in the ampullar portion. The right fallopian tube was grasped with a Kleppinger and fulgurated 2-3 cm in the ampullar portion. All instruments were then removed from the abdomen and vagina. The 10 mm infraumbilical incision was closed with 0 Vicryl and the fascial layer and then 4-0 Vicryl in a subcuticular fashion. The 5 mm incision was closed with 4- 0 Vicryl in a subcuticular fashion. Patient tolerated procedure well, sponge and instrument counts correct 2 and she was taken to recovery room in stable condition.
[2024-02-29 11:00] VITALS: TEMP 97.6
[2024-02-29] MEDS: HYDROmorphone 0.5 MG/0.5 ML SYRINGE IVP PRN (11:10)
[2024-02-29 11:38] VITALS: RESP 16
[2024-02-29 11:51] VITALS: BP 125/80; PULSE 65
== END 2024-02-29 12:29 | disposition home or self-care (01) ==
LOC: OR 09:23
PROVIDERS: ATTEND Obstetrics & Gynecology
DX: Z30.2 Encounter for sterilization (principal); I49.3 Ventricular premature depolarization; F41.9 Anxiety disorder, unspecified; F32.A Depression, unspecified; F17.200 Nicotine dependence, unspecified, uncomplicated; Z79.899 Other long term (current) drug therapy
CPT/HCPCS: 58670; 81025; J2250; J0330; J1100; J2710; J2405; J2003; J3010; J1885; J2704; J1171; J0665; J1596

== ENCOUNTER 2024-06-24 19:38 | Emergency (ER) | payer OTHER ==
[2024-06-24 19:53] VITALS: BP 146/98; PULSE 106; RESP 18; TEMP 97.8
--- NOTE | 2024-06-24 20:07 | ED ---
Chest Pain HPI - General Source: patient, EMS Mode of arrival: EMS Limitations: no limitations <Brannon Myrick - Last Filed: 06/25/24 03:58> <Jules Hood - Last Filed: 06/30/24 16:39> - General Chief Complaint: Chest Pain Stated Complaint: Anxiety Time Seen by Provider: 06/24/24 20:06 - History of Present Illness Initial Comments: 38-year-old female presenting with chief complaint of possible panic attack. Patient reports that she started taking Adderall 2 weeks ago. She reports that this afternoon she started feeling very flushed and dizzy. States that she tried eating some food but this did not improve anything. States that she is feeling short of breath and also vomited earlier. (Brannon Myrick) - Related Data Home Medications Medication Instructions Recorded Confirmed Venlafaxine HCl ER [Effexor Xr] 75 mg PO DAILY 12/11/20 02/29/24 Previous Rx's Medication Instructions Recorded Ibuprofen [Motrin] 600 mg PO Q6HR PRN #30 tab 02/29/24 Allergies Allergy/AdvReac Type Severity Reaction Status Date / Time No Known Allergies Allergy Verified 06/24/24 19:53 Review of Systems ROS Other: All systems not noted in ROS Statement are negative. <Brannon Myrick - Last Filed: 06/25/24 03:58> ROS Other: All systems not noted in ROS Statement are negative. <Jules Hood - Last Filed: 06/30/24 16:39> ROS Statement: Those systems with pertinent positive or pertinent negative responses have been documented in the HPI. Past Medical History Past Medical History: Syncope, Thyroid Disorder Additional Past Medical History / Comment(s): PVC's, NON GROWING THYROID NODULE History of Any Multi-Drug Resistant Organisms: None Reported Past Surgical History: Section Additional Past Surgical History / Comment(s): WISDOM TEETH PULLED UNDER ANESTHESIA Past Anesthesia/Blood Transfusion Reactions: No Reported Reaction Additional Past Anesthesia/Blood Transfusion Reaction / Comment(s): NO BLOOD TRANSFUSION Past Psychological History: Anxiety, Depression Smoking Status: Current every day smoker Past Alcohol Use History: Occasional Past Drug Use History: None Reported - Past Family History Father Family Medical History: Hypertension <Brannon Myrick - Last Filed: 06/25/24 03:58> General Exam Limitations: no limitations <Brannon Myrick - Last Filed: 06/25/24 03:58> - General Exam Comments Initial Comments: Visual Physical Exam Vital signs reviewed General: Well-appearing, nontoxic, no acute distress. Head: Normocephalic, atraumatic Eyes: PERRLA, EOMI ENT: Airway patent Chest: Nonlabored breathing Skin: No visual rash, normal skin tone Neuro: Alert and oriented 3 Musculoskeletal: No gross abnormalities (Brannon Myrick) Course Vital Signs 06/24/24 19:49 Temperature 97.8 F Pulse Rate 106 H Respiratory 18 Rate Blood Pressure 146/98 O2 Sat by Pulse 99 Oximetry Chest Pain MDM <Brannon Myrick - Last Filed: 06/25/24 03:58> - MDM I performed the quick note portion of this visit, electronically signed Brannon Myrick PA-C Patient later eloped from the waiting room prior to completion of evaluation (Brannon Myrick) Disposition <Brannon Myrick - Last Filed: 06/25/24 03:58> <Jules Hood - Last Filed: 06/30/24 16:39> Clinical Impression: Chest pain, Anxiety Disposition: LEFT AGAINST MEDICAL ADVICE Condition: Undetermined Referrals: Roni Hua III, MD [Primary Care Provider] - 1-2 days
== END 2024-06-24 20:48 | disposition left against medical advice (07) ==
LOC: EC 19:38
DX: R07.9 Chest pain, unspecified (principal); F41.9 Anxiety disorder, unspecified; F17.200 Nicotine dependence, unspecified, uncomplicated; Z53.29 Procedure and treatment not carried out because of patient's decision for other reasons
CPT/HCPCS: 93005; 99285